=== PATIENT | male | born 1995 | race Caucasian/White ===

== ENCOUNTER 2016-12-13 17:40 | Inpatient (IN) ==
[2016-12-13] MEDS ORDERED: Ibuprofen 600 MG TABLET PO ONE (18:40)
--- NOTE | 2016-12-13 18:46 | Emergency Department Note ---
Disposition Clinical Impression: Acute psychosis Disposition: Admitted As Inpatient Condition: Fair Referrals: NO,PCP [Primary Care Provider] - Forms: Work/School Release, ED Satisfaction Letter Psych HPI - General Chief Complaint: ED General Medical Stated Complaint: med clearance, has pink slip Time Seen by Provider: 12/13/16 18:05 Source: patient Mode of arrival: private vehicle Limitations: no limitations Nursing Notes Reviewed: Yes Vital Signs Reviewed: Yes - History of Present Illness Pt complaint: medical clearance request If medical clearance, reason: psychiatric condition Onset (ago): day(s) Duration: constant, getting worse History of similar episodes: Yes Improves with: none Worsens with: none Context: other (unknown) Alleged intoxication: No Associated Psychiatric Symptoms: homicidal ideation, racing thoughts, auditory hallucinations Associated symptoms: Reports: other ("left knee cap and hands hurt from working so much." 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 Constitutional: Denies: fever, chills, weakness, weight change, night sweats Eyes: Denies: vision change ENT ED: Denies: throat pain, dysphagia Cardiovascular: Denies: chest pain, palpitations Respiratory: Denies: cough, dyspnea, wheezes Gastrointestinal: Denies: abdominal pain, nausea, vomiting Musculoskeletal: Denies: back pain, neck pain, joint swelling Integumentary: Denies: rash Neurological: Denies: headache, weakness, numbness, paresthesias Past Medical History - Past Medical History Attestation: Yes The following information was validated with the patient. Source: patient Medical history: Reports: no medical history Surgical history: Reports: no surgical history Psychiatric history: Reports: schizophrenia, previous psychiatric hospitalization - Social History Smoking Status: Current every day smoker Smokeless Tobacco Status: Yes Alcohol use: Reports: none Drug use: Reports: none Physical Exam - General Limitations: no limitations General appearance: alert, in no apparent distress - Head Head exam: atraumatic, normocephalic, normal inspection - Eye Eye exam: Present: normal appearance, PERRL. Absent: scleral icterus, conjunctival injection, periorbital swelling - ENT ENT exam: mucous membranes moist - Neck Neck exam: Present: normal inspection, full ROM, trachea midline - Chest Chest inspection: Present: normal inspection, symmetric chest wall rise - Respiratory Respiratory exam: Present: normal lung sounds bilaterally, respiratory distress - Cardiovascular Cardiovascular exam: Present: regular rate, normal rhythm, normal heart sounds - Extremities Exam Extremities exam: Present: normal inspection, full ROM, normal capillary refill. Absent: tenderness, pedal edema, joint swelling, calf tenderness - Expanded Upper Extremity Exam Shoulder exam: Present: normal inspection Arm exam: Present: normal inspection Elbow exam: Present: normal inspection Forearm/Wrist exam: Present: normal inspection Hand exam: Present: normal inspection, full ROM. Absent: tenderness, swelling Neuromotor exam: Normal: wrist extension, thumb opposition, thumb IP flexion, thumb adduction, fingers 2-5 abduction Neurosensory exam: Normal: radial nerve, ulnar nerve, median nerve, 2-point discrimination Hand tendon exam: Normal: flexor digitorum profundus (location), flexor digitorum superficialis (location), extensor tendon (location) - Expanded Lower Extremity Exam Hip/Pelvis exam: Present: normal inspection Upper leg exam: Present: normal inspection Knee exam: Present: normal inspection, full ROM. Absent: tenderness Lower leg exam: Present: normal inspection. Absent: tenderness, Homans' sign Ankle exam: Present: normal inspection, full ROM. Absent: tenderness, swelling Foot/toe exam: Present: normal inspection, full ROM. Absent: tenderness, swelling Neurovascular/Tendon exam: Present: normal capillary refill. Absent: pulse deficit, motor deficit, sensory deficit, extremity cold to touch, foot drop Gait: observed and normal - Back Exam Back exam: Present: normal inspection, full ROM. Absent: tenderness - Neurological Exam Neurological exam: Present: alert, oriented X3, CN II-XII intact, normal gait - Psychiatric Psychiatric exam: Present: depressed, flat affect - Skin Skin exam: Present: warm, dry, intact, normal color Course Vital Signs Temperature 97.9 F 12/13/16 18:15 Pulse Rate 79 12/13/16 18:15 Respiratory Rate 16 12/13/16 18:15 Blood Pressure 116/78 12/13/16 18:15 O2 Sat by Pulse Oximetry 99 12/13/16 18:15 Temperature 97.9 F 12/13/16 18:15 Pulse Rate 79 12/13/16 18:15 Respiratory Rate 16 12/13/16 18:15 Blood Pressure 116/78 12/13/16 18:15 O2 Sat by Pulse Oximetry 99 12/13/16 18:15 Oxygen Delivery Oxygen Delivery Room Air Psychiatric Medical Clearance - Medical Clearance Checklist Does the patient have a NEW psychiatric condition?: No Any abnormalities indicating possible medical illness?: No Any history of medical issues?: No Medical History: No Social History Section defined Any abnormal vital signs prior to transfer?: No Current Vitals: Last Vital Signs Temp 97.9 F 12/13/16 18:15 Pulse 79 12/13/16 18:15 Resp 16 12/13/16 18:15 BP 116/78 12/13/16 18:15 Pulse Ox 99 12/13/16 18:15 Is the patient intoxicated or cognitively impaired?: No Any abnormalities on the physical exam?: No Any abnormal labs?: No Does the patient require durable medical equiptment?: No Is the patient ambulatory?: Yes Is the patient a fall risk?: No Has the patient been medically cleared?: Yes Any acute medical condition require Tx prior to transfer?: Yes (pt c/o hand and patella pain from working a lot, given ibuprofen) Statement of Medical Clearance: I have evaluated the patient, reviewed diagnostic information, and certify that the patient's medical condition is sufficiently stable that transfer to the psychiatric unit does not pose a significant risk of deterioration.
[2016-12-13 18:53] LABS: Bilirubin,Urine Negative (Negative); Blood,Urine Negative (Negative); Clarity,Urine Clear (Clear); Color,Urine Yellow (Yellow); Glucose,Urine (UA) Normal (Normal); Ketones,Urine Negative (Negative); Leukocyte Esterase,Urine Negative (Negative); Nitrite,Urine Negative (Negative); PH,Urine 6.5 pH Units (5.0-8.0); Protein,Urine Negative (Neg-Trace); Specific Gravity,Urine < 1.005 (1.010-1.025); Urobilinogen,Urine Normal (Normal)
[2016-12-13 18:53] LABS: Basophils % 0.3 %; Eosinophils # 0.1 K/mcL (0.0-0.6); Eosinophils % 0.8 %; Hematocrit 48.5 % (37.5-50.1); Hemoglobin 16.7 g/dL (12.9-16.9); Immature Granulocytes % 0.2 % (0-4); Lymphocytes # 2.1 K/mcL (0.6-4.6); Lymphocytes % 23.4 %; Mean Corpuscular HGB Conc 34.4 g/dL (31.6-35.5); Mean Corpuscular Hemoglobin 29.7 pg (28.0-33.3); Mean Corpuscular Volume 86.3 fL (83.0-100.0); Mean Platelet Volume 9.5 fL (9.4-12.4); Monocytes # 0.6 K/mcL (0.0-1.3); Monocytes % 6.7 %; Neutrophils # 6.1 K/mcL (1.6-8.9); Platelet Count 275 K/mcL (140-400); Red Blood Count 5.62 M/mcL (4.19-5.50); Red Cell Distribution Width 12.3 % (11.5-14.5); Segmented Neutrophils % 68.6 %
[2016-12-13 18:59] LABS: Amphetamine Screen,Urine Negative ng/mL (Cutoff=1000); Barbiturate Screen,Urine Negative ng/mL (Cutoff=200); Benzodiazepines Screen,Urine Negative ng/mL (Cutoff=200); Cannabinoid Screen,Urine Negative ng/mL (Cutoff = 50); Cocaine Screen,Urine Negative ng/mL (Cutoff= 300); Opiate Screen,Urine Negative ng/mL (Cutoff=300); Phencyclidine Screen,Urine Negative ng/mL (Cutoff=25)
[2016-12-13 19:07] LABS: Alanine Aminotransferase 8 Units/L (0-55); Albumin 4.5 g/dL (3.5-5.0); Albumin/Globulin Ratio 1.3 (1.1-2.2); Alkaline Phosphatase 64 Units/L (38-126); Aspartate Amino Transferase 14 Units/L (5-34); BUN/Creatinine Ratio 6 (6-26); Bilirubin,Total 1.2 mg/dL (0.2-1.2); Calcium 9.7 mg/dL (8.6-10.8); Carbon Dioxide 28 mEq/L (19-29); Chloride 98 mEq/L (98-109); Globulin 3.4 g/dL (2.4-3.5); Glucose 101 mg/dL (70-99); Osmolality,Calculated 279 (280-300); Sodium 136 mEq/L (136-145); Total Protein 7.9 g/dL (6.0-8.3); eGFR For African Americans > 60 (> 60); eGFR For Non-African Americans > 60 (> 60)
[2016-12-13 19:09] LABS: Acetaminophen < 1.0 mcg/mL (10-30); Blood Urea Nitrogen 5 mg/dL (8-26); Ethanol < 10 mg/dL (0-10); Salicylate < 5.0 mg/dL (15-30)
[2016-12-13 19:28] LABS: Thyroid Stimulating Hormone 1.568 mcIU/mL (0.350-4.840)
[2016-12-13 19:29] LABS: Hepatitis B Core IgM Nonreactive (Nonreactive); Hepatitis B Surface Antigen Nonreactive (Nonreactive); Hepatitis C Virus Antibody Nonreactive (Nonreactive)
[2016-12-13 19:33] LABS: Hepatitis A Antibody IgM Nonreactive (Nonreactive)
[2016-12-13] MEDS ORDERED: *HR* LORazepam 2 MG/ML VIAL IM PRN (19:48)
[2016-12-13] MEDS ORDERED: Haloperidol Lactate 5 MG/ML VIAL IM PRN (19:48)
[2016-12-13] MEDS ORDERED: Mag Hydrox/Al Hydrox/Simeth 30 ML UDC PO PRN (19:48)
[2016-12-13] MEDS ORDERED: MOM Conc 10 ML UD.LIQ PO PRN (19:48)
[2016-12-13] MEDS: Nicotine 2 MG GUM BC PRN (20:40)
--- NOTE | 2016-12-14 11:21 | Psychiatry History & Physical ---
Date of Encounter: 12/14/16 Time of Encounter: 10:30 History of Present Illness Patient Stated Chief Complaint: visual hallucinations and auditory hallucinations Medicare Admission Attestation: For traditional Medicare patients the provided hospital inpatient services are reasonable and necessary and in the case of services not specified as inpatient -only under 42 CFR 419.22 (n), that they are appropriately provided as inpatient services in accordance 42 CFR 412.3. For Critical Access Hospital the patient may reasonably be expected to be discharged or transferred to a hospital within 96 hours after admission to the Critical [facility] Hospital. Admitted From: Emergency Dept History of Present Illness: Mr. Aguila is a 21 year old male admitted from the emergency department reporting visual hallucinations and auditory hallucinations. Patient has a previous admission with similar presentation in April 2016 and was prescribed medication including Seroquel and Celexa he did not follow-up as advised. He is very guarded and suspicious and paranoid, was not able to answer most questions he was internally stimulated and distractible but she denied any suicidal or homicidal ideation. And he denied any use of alcohol or drugs. Past Med Surg Social Fam HX - Past Medical History Medical history: no medical history - Past Psychiatric History Psychiatric history: Reports: schizophrenia, previous psychiatric hospitalization - Past Surgical History Surgical History: no surgical history - Social History Smoking Status: Current every day smoker Smokeless Tobacco Status: Yes Alcohol use: none Drug use: none - Family History Mother Hx Family GI Disorders: Yes (ulcers) Hx Family Medical Disorders: No Medications & Allergies No Known Home Drugs 12/13/16 [History] Allergies Amoxicillin Allergy (Verified 05/03/16 22:33) Hives Review of Systems Psychiatric: Reports: auditory hallucinations, visual hallucinations Mental Status Exam Patient orientation: Yes Person, Yes Time, Yes Place Level of alertness: Alert Patient appearance: Appropriate, Well Groomed Behavior: calm, cooperative, restless, guarded, suspicious, distractible Psychomotor activity: Increased Eye contact: Avoids Eye Contact Mood description: Anxious Affect description: congruent with mood, constricted, anxious Speech pattern: Slowed, Delayed, Limited, Impoverished Speech volume: Whispering Thought process: Tangential, Thought Blocking Thought content: No Suicidal ideation, No Homicidal ideation, No Overt delusions , Yes Paranoid delusion Perceptual disturbances: Yes Reacting to internal stimuli, Yes Auditory hallucinations, Yes Visual hallucinations Attention span: Unable to Focus Memory description: Grossly Intact, Immediate Impaired, Recent Impaired, Remote Impaired Patient reliability: Not Reliable Historian Intelligence estimate: Average Judgment: Limited Insight: Partial Results - Vital Signs Vital signs: Temp Pulse Resp BP Pulse Ox 98 F 73 16 114/68 99 12/14/16 09:00 12/14/16 09:00 12/14/16 09:00 12/14/16 09:00 12/13/16 18:15 - Labs Labs: Laboratory Last Values WBC 8.9 K/mcL (4.3-11.1) 12/13/16 18:43 RBC 5.62 M/mcL (4.19-5.50) H 12/13/16 18:43 Hgb 16.7 g/dL (12.9-16.9) 12/13/16 18:43 Hct 48.5 % (37.5-50.1) 12/13/16 18:43 MCV 86.3 fL (83.0-100.0) 12/13/16 18:43 MCH 29.7 pg (28.0-33.3) 12/13/16 18:43 MCHC 34.4 g/dL (31.6-35.5) 12/13/16 18:43 RDW 12.3 % (11.5-14.5) 12/13/16 18:43 Plt Count 275 K/mcL (140-400) 12/13/16 18:43 MPV 9.5 fL (9.4-12.4) 12/13/16 18:43 Immature Gran % 0.2 % (0-4) 12/13/16 18:43 Seg Neutrophils % 68.6 % 12/13/16 18:43 Lymphocytes % 23.4 % 12/13/16 18:43 Monocytes % 6.7 % 12/13/16 18:43 Eosinophils % 0.8 % 12/13/16 18:43 Basophils % 0.3 % 12/13/16 18:43 Neutrophils # 6.1 K/mcL (1.6-8.9) 12/13/16 18:43 Lymphocytes # 2.1 K/mcL (0.6-4.6) 12/13/16 18:43 Monocytes # 0.6 K/mcL (0.0-1.3) 12/13/16 18:43 Eosinophils # 0.1 K/mcL (0.0-0.6) 12/13/16 18:43 Basophils # 0.0 K/mcL (0.0-0.2) 12/13/16 18:43 Sodium 136 mEq/L (136-145) 12/13/16 18:43 Potassium 4.0 mEq/L (3.5-4.5) 12/13/16 18:43 Chloride 98 mEq/L (98-109) 12/13/16 18:43 Carbon Dioxide 28 mEq/L (19-29) 12/13/16 18:43 BUN 5 mg/dL (8-26) L 12/13/16 18:43 Creatinine 0.84 mg/dL (0.72-1.25) 12/13/16 18:43 Est GFR ( Amer) > 60 (> 60) 12/13/16 18:43 Est GFR (Non-Af Amer) > 60 (> 60) 12/13/16 18:43 BUN/Creatinine Ratio 6 (6-26) 12/13/16 18:43 Glucose 101 mg/dL (70-99) H 12/13/16 18:43 Calculated Osmolality 279 (280-300) L 12/13/16 18:43 Calcium 9.7 mg/dL (8.6-10.8) 12/13/16 18:43 Total Bilirubin 1.2 mg/dL (0.2-1.2) 12/13/16 18:43 AST 14 Units/L (5-34) 12/13/16 18:43 ALT 8 Units/L (0-55) 12/13/16 18:43 Alkaline Phosphatase 64 Units/L (38-126) 12/13/16 18:43 Serum Total Protein 7.9 g/dL (6.0-8.3) 12/13/16 18:43 Albumin 4.5 g/dL (3.5-5.0) 12/13/16 18:43 Globulin 3.4 g/dL (2.4-3.5) 12/13/16 18:43 Albumin/Globulin Ratio 1.3 (1.1-2.2) 12/13/16 18:43 TSH 1.568 mcIU/mL (0.350-4.840) 12/13/16 18:43 Urine Color Yellow (Yellow) 12/13/16 18:41 Urine Clarity Clear (Clear) 12/13/16 18:41 Urine pH 6.5 pH Units (5.0-8.0) 12/13/16 18:41 Ur Specific [place] < 1.005 (1.010-1.025) L 12/13/16 18:41 Urine Protein Negative mg/dL (Neg-Trace) 12/13/16 18:41 Urine Glucose (UA) Normal mg/dL (Normal) 12/13/16 18:41 Urine Ketones Negative mg/dL (Negative) 12/13/16 18:41 Urine Blood Negative (Negative) 12/13/16 18:41 Urine Nitrite Negative (Negative) 12/13/16 18:41 Urine Bilirubin Negative (Negative) 12/13/16 18:41 Urine Urobilinogen Normal mg/dL (Normal) 12/13/16 18:41 Ur Leukocyte Esterase Negative (Negative) 12/13/16 18:41 Ur Culture Indicated? NO (NO) 12/13/16 18:41 Salicylates < 5.0 mg/dL (15-30) L 12/13/16 18:43 Urine Opiates Screen Negative ng/mL (Zhzrez=059) 12/13/16 18:41 Acetaminophen < 1.0 mcg/mL (10-30) L 12/13/16 18:43 Ur Barbiturates Screen Negative ng/mL (Fkzeax=006) 12/13/16 18:41 Ur Phencyclidine Scrn Negative ng/mL (Cutoff=25) 12/13/16 18:41 Ur Amphetamines Screen Negative ng/mL (Omizpu=5301) 12/13/16 18:41 U Benzodiazepines Scrn Negative ng/mL (Lelxhi=573) 12/13/16 18:41 Urine Cocaine Screen Negative ng/mL (Cutoff= 300) 12/13/16 18:41 U Marijuana (THC) Screen Negative ng/mL (Cutoff = 50) 12/13/16 18:41 Ethyl Alcohol < 10 mg/dL (0-10) 12/13/16 18:43 Hepatitis A IgM Ab Nonreactive (Nonreactive) 12/13/16 18:43 Hep Bs Antigen Nonreactive (Nonreactive) 12/13/16 18:43 Hep B Core IgM Ab Nonreactive (Nonreactive) 12/13/16 18:43 Hepatitis C Ab Screen Nonreactive (Nonreactive) 12/13/16 18:43 Assessment and Plan (1) Acute psychosis Current visit: Yes Status: Acute Plan: Admit inpatient for safety and stabilization, Close observation, Suicide Precautions per unit protocol, Encourage participation in unit milieu, Group Therapy, Monitor sleep, Monitor appetite Additional Plan: We will start patient on Celexa 20 mg and Seroquel 50 mg at bedtime benefits and side effects were discussed with the patient is agreeable to start medication and will monitor Risks, benefits, side effects, alternatives discussed w/pt: Yes Patient agreeable to treatment: Yes
[2016-12-14] MEDS: Acetaminophen 325 MG TABLET PO PRN (11:25)
[2016-12-14] MEDS: Nicotine 2 MG GUM BC PRN (13:31)
[2016-12-14] MEDS: ARIPiprazole 5 MG TABLET PO SCH (20:38)
[2016-12-14] MEDS: traZODone 50 MG TABLET PO PRN (20:38)
[2016-12-15] MEDS: *HR* LORazepam 1 MG TABLET PO PRN ×2 (02:40→19:19)
--- NOTE | 2016-12-15 13:47 | Psychiatry Progress Note ---
Date of Encounter: 12/15/16 Time of Encounter: 13:44 Subjective Interval history: Patient is seen for follow-up. Staff report he is cooperative, compliant with medication, participated in groups. He is not agitated and denies any auditory hallucination. He reports improved sleep. He is more interactive and making eye contact. Denies any suicidal thoughts. Review of Systems Psychiatric: Reports: auditory hallucinations, visual hallucinations Objective: Exam Patient orientation: Yes Person, Yes Time, Yes Place Level of alertness: Alert Patient appearance: Appropriate, Well Groomed Behavior: calm, cooperative, anxious, guarded Psychomotor activity: Normal Eye contact: Minimal Contact Mood description: Euthymic/stable, Anxious Affect description: congruent with mood, euthymic, anxious Speech pattern: Normal rate, Normal rhythm, Normal tone Speech volume: Normal, Whispering Thought process: Linear, Goal Oriented Thought content: No Suicidal ideation, No Homicidal ideation, No Overt delusions Perceptual disturbances: Yes Reacting to internal stimuli, No Auditory hallucinations, No Visual hallucinations Judgment: Fair Insight: Partial Results - Vital Signs Vital Signs: Temp Pulse Resp BP Pulse Ox 98.3 F 80 18 106/71 99 12/15/16 09:00 12/15/16 09:00 12/15/16 09:00 12/15/16 09:00 12/13/16 18:15 Assessment and Plan (1) Acute psychosis Current visit: Yes Status: Acute Plan: Continue hospitalization, Close observation, Suicide Precautions per unit protocol, Encourage participation in unit milieu, Group Therapy, Monitor sleep, Monitor appetite Risks, benefits, side effects, alternatives discussed w/pt: Yes Patient agreeable to treatment: Yes Consult Discharge Plan - Plan Referrals: NO,PCP [Primary Care Provider] -
[2016-12-15] MEDS: Nicotine 2 MG GUM BC PRN (19:16)
[2016-12-15] MEDS: Acetaminophen 325 MG TABLET PO PRN (19:16)
[2016-12-15] MEDS: ARIPiprazole 5 MG TABLET PO SCH (20:57)
[2016-12-15] MEDS: hydrOXYzine pamoate 25 MG CAPSULE PO PRN (20:57)
[2016-12-15] MEDS: traZODone 50 MG TABLET PO PRN (20:57)
[2016-12-16] MEDS: *HR* LORazepam 1 MG TABLET PO PRN ×2 (08:12→21:50)
[2016-12-16] MEDS: Nicotine 21 MG PATCH.TD24 TD SCH (09:42)
--- NOTE | 2016-12-16 14:07 | Psychiatry Progress Note ---
Date of Encounter: 12/16/16 Time of Encounter: 14:03 Subjective Interval history: Patient seen for follow-up. He denies visual hallucinations, auditory hallucinations are less frequent and not as loud. He has been sleeping longer hours and denies any suicidal thoughts. Compliant with medication and attend some groups. Signed in voluntarily. Review of Systems Psychiatric: Reports: auditory hallucinations, visual hallucinations Objective: Exam Patient orientation: Yes Person, Yes Time, Yes Place Level of alertness: Alert, Sedated Patient appearance: Appropriate, Unkempt Behavior: calm, cooperative, distractible Psychomotor activity: Slowed Eye contact: Fleeting Contact Mood description: Euthymic/stable Affect description: congruent with mood, blunted Speech pattern: Normal rate, Normal rhythm, Normal tone, Limited, Impoverished Speech volume: Normal, Whispering Thought process: Linear, Goal Oriented Thought content: No Suicidal ideation, No Homicidal ideation, No Overt delusions Perceptual disturbances: Yes Auditory hallucinations, No Visual hallucinations Judgment: Fair Insight: Partial Results - Vital Signs Vital Signs: Temp Pulse Resp BP Pulse Ox 98.4 F 74 18 114/66 99 12/16/16 09:00 12/16/16 09:00 12/16/16 09:00 12/16/16 09:00 12/13/16 18:15 Assessment and Plan (1) Acute psychosis Current visit: Yes Status: Acute Plan: Continue hospitalization, Close observation, Suicide Precautions per unit protocol, Encourage participation in unit milieu, Group Therapy, Monitor sleep, Monitor appetite Additional Plan: Will increase Abilify to 10 mg at bedtime. Risks, benefits, side effects, alternatives discussed w/pt: Yes Patient agreeable to treatment: Yes Consult Discharge Plan - Plan Referrals: [facility] [Outside] - 12/30/16 11:00 am (The above appointment is with Dr. Brady, psychiatrist. Please arrive 30 minutes early for this appointment to complete paperwork. This is the first available appointment. You may contact the office regularly to check for cancellations that may allow you to be seen sooner. Office staff will contact you directly to schedule your intake appointment for counseling/case management services. )
[2016-12-16] MEDS: Acetaminophen 325 MG TABLET PO PRN ×2 (15:46→21:49)
[2016-12-16] MEDS: traZODone 50 MG TABLET PO PRN (21:49)
[2016-12-16] MEDS: ARIPiprazole 5 MG TABLET PO SCH (21:50)
[2016-12-17] MEDS: Nicotine 21 MG PATCH.TD24 TD SCH (08:40)
--- NOTE | 2016-12-17 13:23 | Psychiatry Progress Note ---
Date of Encounter: 12/17/16 Time of Encounter: 13:00 Subjective Interval history: Patient is seen for follow-up. Staff report he has been given when necessary medication twice a day for the last 2 days. He is internally stimulated, paranoid and report auditory and visual hallucinations. He seclusive to his room at all times. Avoids interaction, avoids eye contact. 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 Review of Systems Psychiatric: Reports: auditory hallucinations, visual hallucinations Objective: Exam Patient orientation: Yes Person, Yes Time, Yes Place Level of alertness: Alert Patient appearance: Appropriate, Unkempt, Thin Behavior: cooperative, anxious, suspicious Psychomotor activity: Slowed Eye contact: Avoids Eye Contact Mood description: Anxious Affect description: congruent with mood, constricted Speech pattern: Normal rate, Normal rhythm, Normal tone, Limited, Impoverished Speech volume: Normal Thought process: Tangential, Thought Blocking Thought content: No Suicidal ideation, No Homicidal ideation, No Overt delusions , Yes Paranoid delusion, Yes Poverty of Content Perceptual disturbances: Yes Auditory hallucinations, Yes Visual hallucinations Judgment: Fair Insight: Partial Results - Vital Signs Vital Signs: Temp Pulse Resp BP Pulse Ox 98.4 F 101 20 103/68 99 12/17/16 09:00 12/17/16 09:00 12/17/16 09:00 12/17/16 09:00 12/13/16 18:15 Assessment and Plan (1) Acute psychosis Current visit: Yes Status: Acute Plan: Continue hospitalization, Close observation, Suicide Precautions per unit protocol, Encourage participation in unit milieu, Group Therapy, Monitor sleep, Monitor appetite Additional Plan: Will add Haldol 5 mg by mouth twice a day scheduled Risks, benefits, side effects, alternatives discussed w/pt: Yes Patient agreeable to treatment: Yes Consult Discharge Plan - Plan Referrals: [facility] [Outside] - 12/30/16 11:00 am (The above appointment is with Dr. Brady, psychiatrist. Please arrive 30 minutes early for this appointment to complete paperwork. This is the first available appointment. You may contact the office regularly to check for cancellations that may allow you to be seen sooner. Office staff will contact you directly to schedule your intake appointment for counseling/case management services. )
[2016-12-17] MEDS: *HR* LORazepam 1 MG TABLET PO PRN ×2 (13:27→19:58)
[2016-12-17] MEDS: hydrOXYzine pamoate 25 MG CAPSULE PO PRN (19:58)
[2016-12-17] MEDS: ARIPiprazole 5 MG TABLET PO SCH (19:58)
[2016-12-17] MEDS: Acetaminophen 325 MG TABLET PO PRN (19:58)
[2016-12-17] MEDS: traZODone 50 MG TABLET PO PRN (19:58)
[2016-12-18] MEDS: Nicotine 21 MG PATCH.TD24 TD SCH (08:15)
--- NOTE | 2016-12-18 13:24 | Psychiatry Progress Note ---
Date of Encounter: 12/18/16 Time of Encounter: 13:00 Subjective Interval history: Omi is seen today for follow-up. He is admitted to the hospital with psychosis and remains very withdrawn to his room. Patient reports that he has been hearing voices. He is actively thought blocking during this interview. Patient remains mainly hidden under his blankets and avoids eye contact. He does report some nausea and this has been witnessed by staff. Patient does also report that he is extremely nervous and he does not want to leave his room but will not say why. Review of Systems Gastrointestinal: Reports: nausea, vomiting Psychiatric: Reports: anxiety, abnormal sleep pattern, auditory hallucinations, visual hallucinations, panic attacks Objective: Exam Patient orientation: Yes Person, Yes Place Level of alertness: Alert Patient appearance: Unkempt Behavior: guarded, fearful Psychomotor activity: Slowed Eye contact: Diverts Contact Mood description: Anxious Affect description: blunted Speech pattern: Slowed Speech volume: Soft/Quiet Thought process: Slowed Thinking Thought content: No Suicidal ideation, No Homicidal ideation, Yes Thought insertion Perceptual disturbances: Yes Reacting to internal stimuli, Yes Auditory hallucinations Judgment: Poor Insight: None Results - Vital Signs Vital Signs: Temp Pulse Resp BP Pulse Ox 98.2 F 88 16 92/62 99 12/18/16 09:00 12/18/16 09:00 12/18/16 09:00 12/18/16 09:00 12/13/16 18:15 Assessment and Plan (1) Acute psychosis Current visit: Yes Status: Acute Plan: Continue hospitalization, Close observation, Suicide Precautions per unit protocol, Encourage participation in unit milieu, Group Therapy, Monitor sleep, Monitor appetite Additional Plan: Patient was recently added on Haldol and has required as needed medication for his psychotic symptoms. Continue to monitor closely to make sure that nausea is not related to medication side effects. Consider increasing Haldol or transitioning to another medication depending on how patient does over the next 24 hours. Risks, benefits, side effects, alternatives discussed w/pt: Yes Patient agreeable to treatment: Yes Consult Discharge Plan - Plan Referrals: [facility] [Outside] - 12/30/16 11:00 am (The above appointment is with Dr. Brady, psychiatrist. Please arrive 30 minutes early for this appointment to complete paperwork. This is the first available appointment. You may contact the office regularly to check for cancellations that may allow you to be seen sooner. Office staff will contact you directly to schedule your intake appointment for counseling/case management services. )
[2016-12-18] MEDS: *HR* LORazepam 1 MG TABLET PO PRN (16:34)
[2016-12-18] MEDS ORDERED: Ziprasidone 20 MG CAPSULE PO ONE (18:30)
[2016-12-18] MEDS: Acetaminophen 325 MG TABLET PO PRN (20:27)
[2016-12-18] MEDS: ARIPiprazole 5 MG TABLET PO SCH (20:27)
[2016-12-18] MEDS: hydrOXYzine pamoate 25 MG CAPSULE PO PRN (20:27)
[2016-12-19] MEDS: hydrOXYzine pamoate 25 MG CAPSULE PO PRN ×2 (07:37→20:08)
[2016-12-19] MEDS: Nicotine 21 MG PATCH.TD24 TD SCH (08:19)
[2016-12-19] MEDS ORDERED: Ziprasidone 80 MG CAPSULE PO SCH (10:23)
[2016-12-19] MEDS: Ziprasidone 20 MG CAPSULE PO SCH ×2 (10:39→20:09)
--- NOTE | 2016-12-19 13:17 | Psychiatry Progress Note ---
Date of Encounter: 12/19/16 Time of Encounter: 11:40 Subjective Interval history: Omi is seen today for follow-up. He was having some EPS symptoms from the Haldol and this was discontinued. Patient was given IM Benadryl and symptoms subsided. Last night he was given Geodon 20 mg 1 dosage and had some improvement in his hallucinations. We will discontinue Abilify and scheduled Geodon for patient's symptoms. Patient denies any issues with muscle cramping today but does report continued hallucinations at the time of the interview. He has been seen responding to internal stimuli and he does continue to thought block. The hallucinations are distressing to Omi. He reports he did not sleep last night. Staff confirms this. Review of Systems Psychiatric: Reports: anxiety, abnormal sleep pattern, auditory hallucinations, visual hallucinations, irritability, panic attacks Objective: Exam Patient orientation: Yes Person Level of alertness: Alert Patient appearance: Appropriate Behavior: nervous, guarded Psychomotor activity: Slowed Eye contact: Diverts Contact Mood description: Anxious Affect description: blunted Speech pattern: Slowed Speech volume: Soft/Quiet Thought process: Thought Blocking, [place] Perceptual disturbances: Yes Reacting to internal stimuli, Yes Auditory hallucinations, Yes Visual hallucinations Judgment: Limited Insight: Minimal Results - Vital Signs Vital Signs: Temp Pulse Resp BP Pulse Ox 98.2 F 46 12 109/56 99 12/19/16 08:48 12/19/16 08:48 12/19/16 08:48 12/19/16 08:48 12/13/16 18:15 Assessment and Plan (1) Acute psychosis Current visit: Yes Status: Acute Plan: Continue hospitalization, Close observation, Suicide Precautions per unit protocol, Encourage participation in unit milieu, Group Therapy, Monitor sleep, Monitor appetite Additional Plan: Discontinue Abilify and start Geodon 20 mg twice a day with Cogentin. We will also start when necessary Geodon instead of Haldol for agitation and increased hallucinations. We will monitor patient for side effects before increasing the dosage. Risks, benefits, side effects, alternatives discussed w/pt: Yes Patient agreeable to treatment: Yes Consult Discharge Plan - Plan Referrals: [facility] [Outside] - 12/30/16 11:00 am (The above appointment is with Dr. Brady, psychiatrist. Please arrive 30 minutes early for this appointment to complete paperwork. This is the first available appointment. You may contact the office regularly to check for cancellations that may allow you to be seen sooner. Office staff will contact you directly to schedule your intake appointment for counseling/case management services. )
[2016-12-19] MEDS: Ziprasidone 20 MG CAPSULE PO PRN (15:43)
[2016-12-19] MEDS: Acetaminophen 325 MG TABLET PO PRN ×2 (15:47→20:08)
[2016-12-19] MEDS: traZODone 50 MG TABLET PO PRN (20:08)
[2016-12-20] MEDS: Nicotine 21 MG PATCH.TD24 TD SCH (08:19)
[2016-12-20] MEDS: Acetaminophen 325 MG TABLET PO PRN ×2 (08:19→18:05)
[2016-12-20] MEDS: Ziprasidone 20 MG CAPSULE PO SCH ×2 (08:20→20:25)
--- NOTE | 2016-12-20 14:40 | Psychiatry Progress Note ---
Date of Encounter: 12/20/16 Time of Encounter: 14:30 Subjective Interval history: Patient is seen for follow-up. His medication was changed on the weekend due to EPS. He was started on Geodon 20 mg twice a day and Abilify was discontinued. Today patient denies any stiffness or muscle spasm is more alert and interactive. Continue to report auditory hallucination but he is unable to make up the words. Denies any suicidal ideation. Review of Systems Psychiatric: Reports: anxiety, abnormal sleep pattern, auditory hallucinations, visual hallucinations, irritability, panic attacks Objective: Exam Patient orientation: Yes Person, Yes Time, Yes Place Level of alertness: Alert Patient appearance: Appropriate, Well Groomed Behavior: calm, cooperative Psychomotor activity: Normal Eye contact: Maintains Eye Contact Mood description: Euthymic/stable, Anxious Affect description: congruent with mood, constricted Speech pattern: Normal rate, Normal rhythm, Normal tone Speech volume: Normal Thought process: Linear, Goal Oriented Thought content: No Suicidal ideation, No Homicidal ideation, No Overt delusions Perceptual disturbances: Yes Auditory hallucinations, No Visual hallucinations Judgment: Fair Insight: Partial Results - Vital Signs Vital Signs: Temp Pulse Resp BP Pulse Ox 97.8 F 91 18 99/65 99 12/20/16 09:00 12/20/16 09:00 12/20/16 09:00 12/20/16 09:00 12/13/16 18:15 Assessment and Plan (1) Acute psychosis Current visit: Yes Status: Acute Plan: Continue hospitalization, Close observation, Suicide Precautions per unit protocol, Encourage participation in unit milieu, Group Therapy, Monitor sleep, Monitor appetite Risks, benefits, side effects, alternatives discussed w/pt: Yes Patient agreeable to treatment: Yes Consult Discharge Plan - Plan Referrals: [facility] [Outside] - 12/30/16 11:00 am (The above appointment is with Dr. Brady, psychiatrist. Please arrive 30 minutes early for this appointment to complete paperwork. This is the first available appointment. You may contact the office regularly to check for cancellations that may allow you to be seen sooner. Office staff will contact you directly to schedule your intake appointment for counseling/case management services. )
[2016-12-20] MEDS: *HR* LORazepam 1 MG TABLET PO PRN (18:05)
[2016-12-20] MEDS: Ziprasidone 20 MG CAPSULE PO PRN (18:05)
[2016-12-20] MEDS: hydrOXYzine pamoate 25 MG CAPSULE PO PRN (20:26)
[2016-12-20] MEDS: traZODone 50 MG TABLET PO PRN (20:26)
[2016-12-21] MEDS: Nicotine 21 MG PATCH.TD24 TD SCH (08:02)
[2016-12-21] MEDS: Ziprasidone 20 MG CAPSULE PO SCH ×2 (08:03→20:09)
--- NOTE | 2016-12-21 12:07 | Psychiatry Progress Note ---
Date of Encounter: 12/21/16 Time of Encounter: 11:30 Subjective Interval history: Patient is seen for follow-up. He reports less auditory and visual hallucinations, he is more alert and interactive. He is tolerating medication and denies any side effects. He denies suicidal ideation. His discharge plans are ongoing. Review of Systems Psychiatric: Reports: anxiety, abnormal sleep pattern, auditory hallucinations, visual hallucinations, irritability, panic attacks Objective: Exam Patient orientation: Yes Person, Yes Time, Yes Place Level of alertness: Alert Patient appearance: Appropriate, Well Groomed Behavior: calm, cooperative Psychomotor activity: Normal Eye contact: Maintains Eye Contact Mood description: Euthymic/stable Affect description: congruent with mood, full range Speech pattern: Normal rate, Normal rhythm, Normal tone Speech volume: Normal Thought process: Linear, Goal Oriented Thought content: No Suicidal ideation, No Homicidal ideation, No Overt delusions Perceptual disturbances: Yes Auditory hallucinations, Yes Visual hallucinations Judgment: Fair Insight: Partial Results - Vital Signs Vital Signs: Temp Pulse Resp BP Pulse Ox 97.6 F 90 16 108/63 99 12/21/16 09:00 12/21/16 09:00 12/21/16 09:00 12/21/16 09:00 12/13/16 18:15 Assessment and Plan (1) Acute psychosis Current visit: Yes Status: Acute Plan: Continue hospitalization, Close observation, Suicide Precautions per unit protocol, Encourage participation in unit milieu, Group Therapy, Monitor sleep, Monitor appetite Risks, benefits, side effects, alternatives discussed w/pt: Yes Patient agreeable to treatment: Yes Consult Discharge Plan - Plan Referrals: [facility] [Outside] - 12/30/16 11:00 am (The above appointment is with Dr. Brady, psychiatrist. Please arrive 30 minutes early for this appointment to complete paperwork. This is the first available appointment. You may contact the office regularly to check for cancellations that may allow you to be seen sooner. Office staff will contact you directly to schedule your intake appointment for counseling/case management services. )
[2016-12-21] MEDS: Acetaminophen 325 MG TABLET PO PRN (20:09)
[2016-12-21] MEDS: traZODone 50 MG TABLET PO PRN (20:09)
[2016-12-21] MEDS: hydrOXYzine pamoate 25 MG CAPSULE PO PRN (20:10)
[2016-12-21] MEDS ORDERED: traZODone 50 MG TABLET PO ONE (22:02)
[2016-12-22] MEDS: Nicotine 21 MG PATCH.TD24 TD SCH (08:17)
[2016-12-22] MEDS: Ziprasidone 20 MG CAPSULE PO SCH (08:18)
[2016-12-22 08:39] VITALS: BP 107/61
--- NOTE | 2016-12-22 13:59 | Discharge Summary ---
Date of Encounter: 12/22/16 Time of Encounter: 12:20 Diagnosis - Discharge Diagnosis (1) Acute psychosis Status: Acute Medications - Discharge Medications Prescriptions: Citalopram [CeleXA] 30 mg PO DAILY #30 tablet Ziprasidone [Geodon] 20 mg PO BID #60 capsule Citalopram [CeleXA] 30 mg PO DAILY #30 tablet 12/22/16 [Rx] Ziprasidone [Geodon] 20 mg PO BID #60 capsule 12/22/16 [Rx] Allergies Amoxicillin Allergy (Verified 05/03/16 22:33) Hives Provider Date of admission: 12/13/16 19:44 Primary care physician: PCP NO Discharging clinician: Cliff Rendon Assessment and Plan - Patient/Caregiver Discharge Instructions Activity: resume usual activities as tolerated Diet: regular diet Additional Instructions: Patient will need medication management and monitoring of his EKG at intervals. EKG was done in the hospital as baseline and was normal EKG. Patient on medication including citalopram and Geodon that may cause EKG changes. This will be ordered by the psychiatrist or the PCP. - Follow up Plan Follow up with: [facility] [Outside] - 12/30/16 11:00 am (The above appointment is with Dr. Brady, psychiatrist. Please arrive 30 minutes early for this appointment to complete paperwork. This is the first available appointment. You may contact the office regularly to check for cancellations that may allow you to be seen sooner. Office staff will contact you directly to schedule your intake appointment for counseling/case management services. ) Functional capacity at discharge: independent ambulation Overall status at discharge: Stable Disposition: Home, Self-Care Hospital Course Hospital course: Mr. Aguila is a 21 year old male admitted for acute psychosis with delusions and hallucinations and paranoia. For details of admission please see H&P On the unit patient was displaying symptoms of paranoia delusion he was self isolating in his room, he did not participate in activities. She reported auditory and visual hallucinations and his sleep and appetite were fair to poor. Patient was started on Abilify in addition to citalopram, he showed improvement in his paranoia and delusions but then he experience some extrapyramidal symptoms and Abilify was discontinued and he was started on Geodon. Patient reported improved sleep and appetite his ADLs improved he participated in groups and become more active and he was excited about discharge. Denied auditory or visual hallucinations and denies suicidal ideation. EKG was performed to establish baseline that need to be monitored later as part of his medication management. His discharge plans were completed by socially responsible investment adviser. On discharge she was medically stable and not depressed or suicidal nonpsychotic and future oriented. - Time Spent with Patient Total time spent providing and/or coordinating discharge services: Greater than 30 minutes Quality - Multiple Antipsychotics Patient discharged on 2 or more antipsychotic medications: No Procedures - Procedures Procedures: Medication Management, Crisis Stabilization, Supportive Therapy, Group Therapy, Psychoeducational Therapy Mental Status Exam - Mental Status Exam Patient orientation: Yes Person, Yes Time, Yes Place Level of alertness: Alert Patient appearance: Appropriate, Well Groomed Behavior: calm, cooperative Psychomotor activity: Normal Eye contact: Maintains Eye Contact Mood description: Euthymic/stable Affect description: congruent with mood, full range Speech pattern: Normal rate, Normal rhythm, Normal tone Speech Volume: Normal Thought process: Linear, Goal Oriented Thought Content: No Suicidal ideation, No Homicidal ideation, No Overt delusions Perceptual Disturbances: No Auditory hallucinations, No Visual hallucinations Judgment: Limited Insight: Partial
--- NOTE | 2016-12-23 14:43 | Electrocardiograph Report ---
[address] [place] [address] Test Date: 2016-12-22 Pat Name: Omi Aguila Department: 101 Room: 1A Gender: M Supervisor Taping: : 1995 Requested By: Cliff Rendon Order Number: [id number] Reading MD: Keanu Arrieta MD Measurements Intervals [place] Rate: 62 P: 57 UT: 143 QRS: 71 QRSD: 80 T: 72 QT: 395 QTc: 400 Interpretive Statements SINUS RHYTHM WITH SINUS ARRHYTHMIA Electronically Signed On 12-23-2016 14:41:41 EDT by Keanu Arrieta MD
== END 2016-12-22 17:00 | disposition home or self-care (01) | DRG 751 ==
LOC: EMEROO 17:40 → 1ANU 19:44
PROVIDERS: ADMIT Psychiatry & Neurology Psychiatry; ATTEND Psychiatry & Neurology Psychiatry

== ENCOUNTER 2017-01-15 22:50 | Inpatient (IN) ==
[2017-01-15 23:44] LABS: Bilirubin,Urine Negative (Negative); Blood,Urine Negative (Negative); Clarity,Urine Clear (Clear); Color,Urine Yellow (Yellow); Glucose,Urine (UA) Normal (Normal); Ketones,Urine Negative (Negative); Leukocyte Esterase,Urine Negative (Negative); Nitrite,Urine Negative (Negative); PH,Urine 6.5 pH Units (5.0-8.0); Protein,Urine Negative (Neg-Trace); Specific Gravity,Urine 1.005 (1.010-1.025); Urobilinogen,Urine Normal (Normal)
[2017-01-15 23:50] LABS: Amphetamine Screen,Urine Negative ng/mL (Cutoff=1000); Barbiturate Screen,Urine Negative ng/mL (Cutoff=200); Benzodiazepines Screen,Urine Negative ng/mL (Cutoff=200); Cannabinoid Screen,Urine Negative ng/mL (Cutoff = 50); Cocaine Screen,Urine Negative ng/mL (Cutoff= 300); Opiate Screen,Urine Negative ng/mL (Cutoff=300); Phencyclidine Screen,Urine Negative ng/mL (Cutoff=25)
[2017-01-16 00:05] LABS: Basophils # 0.1 K/mcL (0.0-0.2); Basophils % 0.4 %; Eosinophils # 0.1 K/mcL (0.0-0.6); Eosinophils % 0.7 %; Hematocrit 44.8 % (37.5-50.1); Hemoglobin 15.3 g/dL (12.9-16.9); Immature Granulocytes % 0.5 % (0-4); Immature Platelets 2.6 % (1.1-6.1); Lymphocytes # 1.7 K/mcL (0.6-4.6); Lymphocytes % 12.9 %; Mean Corpuscular HGB Conc 34.2 g/dL (31.6-35.5); Mean Corpuscular Hemoglobin 30.1 pg (28.0-33.3); Mean Platelet Volume 9.3 fL (9.4-12.4); Monocytes % 7.8 %; Neutrophils # 10.4 K/mcL (1.6-8.9); Platelet Count 224 K/mcL (140-400); Red Blood Count 5.09 M/mcL (4.19-5.50); Red Cell Distribution Width 13.2 % (11.5-14.5); Segmented Neutrophils % 77.7 %
[2017-01-16 00:16] LABS: BUN/Creatinine Ratio 8 (6-26); Blood Urea Nitrogen 7 mg/dL (8-26); Calcium 9.3 mg/dL (8.6-10.8); Carbon Dioxide 27 mEq/L (19-29); Chloride 99 mEq/L (98-109); Glucose 111 mg/dL (70-99); Osmolality,Calculated 279 (280-300); Potassium 3.2 mEq/L (3.5-4.5); Sodium 135 mEq/L (136-145); eGFR For African Americans > 60 (> 60); eGFR For Non-African Americans > 60 (> 60)
[2017-01-16 00:41] LABS: Acetaminophen < 1.0 mcg/mL (10-30); Ethanol < 10 mg/dL (0-10); Salicylate < 5.0 mg/dL (15-30)
--- NOTE | 2017-01-16 03:02 | Emergency Department Note ---
Disposition Clinical Impression: Overdose Disposition: Admitted As Inpatient Condition: Fair Referrals: NO,PCP [Primary Care Provider] - Forms: ED Satisfaction Letter Time of Disposition: 04:11 General Adult HPI - General Chief complaint: ED Psychiatric Symptoms Stated complaint: intentional overdose/SI Time Seen by Provider: 01/15/17 23:12 Source: patient, EMS Mode of arrival: private vehicle Limitations: no limitations Nursing Notes Reviewed: Yes Vital Signs Reviewed: Yes - History of Present Illness HPI Narrative: 21-year-old male presents to emergency department after an intentional overdose. Patient states that he was attempting to commit suicide. Patient took a total of 20 mg of Cogentin and 100 mg of Celexa. Poison control was called and recommended observation and a psychiatric evaluation. Patient currently resting comfortably in no acute distress. Vital signs within normal limits. 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 Pain Severity: mild Pain Scale: 2 Consistency: constant Improves with: nothing Worsens with: nothing Associated symptoms: Reports: other (Suicidal ideation, intentional overdose.) Treatments Prior to Arrival: none - Related Data Previous Rx's Medication Instructions Recorded Citalopram [CeleXA] 30 mg PO DAILY #30 tablet 12/22/16 Ziprasidone [Geodon] 20 mg PO BID #60 capsule 12/22/16 Benztropine [Cogentin] 1 mg PO BID #30 tablet 12/30/16 Allergies Allergy/AdvReac Type Severity Reaction Status Date / Time Amoxicillin Allergy Hives Verified 05/03/16 22:33 All systems ED: reviewed and negative except as stated. Constitutional: Denies: fever, chills Cardiovascular: Denies: chest pain Respiratory: Denies: cough, dyspnea Gastrointestinal: Denies: abdominal pain, nausea, vomiting Musculoskeletal: Denies: back pain, neck pain Integumentary: Denies: rash, abrasion, lesions Neurological: Denies: headache Psychiatric: Reports: anxiety, depression, suicidal thoughts Past Medical History - Past Medical History Medical history: Reports: other Surgical history: Reports: no surgical history Psychiatric history: Reports: schizophrenia, previous psychiatric hospitalization - Social History Smoking Status: Current every day smoker Smokeless Tobacco Status: Yes Alcohol use: Reports: none Drug use: Reports: none Physical Exam - General General appearance: alert, anxious Course Course Narrative: Vital signs remained within normal limits. Patient continues to rest comfortably. No acute distress noted. Patient has not had any nausea, vomiting , irritability, chest pain, shortness of breath or tachycardia. Plan is to admit patient to hospital for observation and psychiatric evaluation. Vital Signs Temperature 97.5 F L 01/15/17 22:54 Pulse Rate 91 01/15/17 22:54 Respiratory Rate 18 01/15/17 22:54 Blood Pressure 135/83 01/15/17 22:54 O2 Sat by Pulse Oximetry 99 01/15/17 22:54 Temperature 98.9 F 01/16/17 02:42 Pulse Rate 94 01/16/17 02:42 Respiratory Rate 18 01/16/17 02:42 Blood Pressure 132/89 01/16/17 02:42 O2 Sat by Pulse Oximetry 98 01/16/17 02:42 Oxygen Delivery Oxygen Delivery Room Air Medical Decision Making - Lab Data Result diagrams: 01/15/17 23:55 01/15/17 23:55 Lab Results 01/15/17 01/15/17 01/15/17 Range/Units 23:19 23:19 23:55 WBC 13.4 H (4.3-11.1) K/mcL RBC 5.09 (4.19-5.50) M/mcL Hgb 15.3 (12.9-16.9) g/dL Hct 44.8 (37.5-50.1) % MCV 88.0 (83.0-100.0) fL MCH 30.1 (28.0-33.3) pg MCHC 34.2 (31.6-35.5) g/dL RDW 13.2 (11.5-14.5) % Plt Count 224 (140-400) K/mcL MPV 9.3 L (9.4-12.4) fL Immature Gran % 0.5 (0-4) % Seg Neutrophils % 77.7 % Lymphocytes % 12.9 % Monocytes % 7.8 % Eosinophils % 0.7 % Basophils % 0.4 % Neutrophils # 10.4 H (1.6-8.9) K/mcL Lymphocytes # 1.7 (0.6-4.6) K/mcL Monocytes # 1.0 (0.0-1.3) K/mcL Eosinophils # 0.1 (0.0-0.6) K/mcL Basophils # 0.1 (0.0-0.2) K/mcL Immature Plt Fraction 2.6 (1.1-6.1) % Sodium (136-145) mEq/L Potassium (3.5-4.5) mEq/L Chloride (98-109) mEq/L Carbon Dioxide (19-29) mEq/L BUN (8-26) mg/dL Creatinine (0.72-1.25) mg/dL Est GFR ( Amer) (> 60) Est GFR (Non-Af Amer) (> 60) BUN/Creatinine Ratio (6-26) Glucose (70-99) mg/dL Calculated Osmolality (280-300) Calcium (8.6-10.8) mg/dL Urine Color Yellow (Yellow) Urine Clarity Clear (Clear) Urine pH 6.5 (5.0-8.0) pH Units Ur Specific Arnold 1.005 L (1.010-1.025) Urine Protein Negative (Neg-Trace) mg/dL Urine Glucose (UA) Normal (Normal) mg/dL Urine Ketones Negative (Negative) mg/dL Urine Blood Negative (Negative) Urine Nitrite Negative (Negative) Urine Bilirubin Negative (Negative) Urine Urobilinogen Normal (Normal) mg/dL Ur Leukocyte Esterase Negative (Negative) Salicylates (15-30) mg/dL Urine Opiates Screen Negative (Jtmlmq=206) ng/mL Acetaminophen (10-30) mcg/mL Ur Barbiturates Screen Negative (Xssvye=775) ng/mL Ur Phencyclidine Scrn Negative (Cutoff=25) ng/mL Ur Amphetamines Screen Negative (Zeahwu=3750) ng/mL U Benzodiazepines Scrn Negative (Wiygun=095) ng/mL Urine Cocaine Screen Negative (Cutoff= 300) ng/mL U Marijuana (THC) Screen Negative (Cutoff = 50) ng/mL Ethyl Alcohol (0-10) mg/dL 01/15/17 Range/Units 23:55 WBC (4.3-11.1) K/mcL RBC (4.19-5.50) M/mcL Hgb (12.9-16.9) g/dL Hct (37.5-50.1) % MCV (83.0-100.0) fL MCH (28.0-33.3) pg MCHC (31.6-35.5) g/dL RDW (11.5-14.5) % Plt Count (140-400) K/mcL MPV (9.4-12.4) fL Immature Gran % (0-4) % Seg Neutrophils % % Lymphocytes % % Monocytes % % Eosinophils % % Basophils % % Neutrophils # (1.6-8.9) K/mcL Lymphocytes # (0.6-4.6) K/mcL Monocytes # (0.0-1.3) K/mcL Eosinophils # (0.0-0.6) K/mcL Basophils # (0.0-0.2) K/mcL Immature Plt Fraction (1.1-6.1) % Sodium 135 L (136-145) mEq/L Potassium 3.2 L (3.5-4.5) mEq/L Chloride 99 (98-109) mEq/L Carbon Dioxide 27 (19-29) mEq/L BUN 7 L (8-26) mg/dL Creatinine 0.86 (0.72-1.25) mg/dL Est GFR ( Amer) > 60 (> 60) Est GFR (Non-Af Amer) > 60 (> 60) BUN/Creatinine Ratio 8 (6-26) Glucose 111 H (70-99) mg/dL Calculated Osmolality 279 L (280-300) Calcium 9.3 (8.6-10.8) mg/dL Urine Color (Yellow) Urine Clarity (Clear) Urine pH (5.0-8.0) pH Units Ur Specific Arnold (1.010-1.025) Urine Protein (Neg-Trace) mg/dL Urine Glucose (UA) (Normal) mg/dL Urine Ketones (Negative) mg/dL Urine Blood (Negative) Urine Nitrite (Negative) Urine Bilirubin (Negative) Urine Urobilinogen (Normal) mg/dL Ur Leukocyte Esterase (Negative) Salicylates < 5.0 L (15-30) mg/dL Urine Opiates Screen (Xyrvjz=186) ng/mL Acetaminophen < 1.0 L (10-30) mcg/mL Ur Barbiturates Screen (Zlfedh=849) ng/mL Ur Phencyclidine Scrn (Cutoff=25) ng/mL Ur Amphetamines Screen (Wuhoac=0540) ng/mL U Benzodiazepines Scrn (Pyyyvs=645) ng/mL Urine Cocaine Screen (Cutoff= 300) ng/mL U Marijuana (THC) Screen (Cutoff = 50) ng/mL Ethyl Alcohol < 10 (0-10) mg/dL
--- NOTE | 2017-01-16 04:43 | Internal Med History&Physical ---
Date of Encounter: 01/16/17 Time of Encounter: 04:40 Assessment and Plan (1) Overdose Current visit: Yes Status: Acute Patient with unintentional suicide attempts. Overdosed on Celexa 100 mg and Cogentin [address] congestion. We will keep patient for observation for monitoring of cardiac arrhythmias. his QRS duration and QTC interval are normal. Suicide precautions and setter at that site. Psychiatry evaluation. Replace hypokalemia. Qualifiers: Qualified Code(s): T50.901A - Poisoning by unspecified drugs, medicaments and biological substances, accidental (unintentional), initial encounter Internal Medicine - H&P: HPI Chief complaint: overdose History of present illness: Mr. Aguila is a 21 year old male presents emergency room today whether suicide attempts. Patient overdosed on 20 mg of Cogentin as well as 100 mg of Celexa. He did this as a suicide attempts. He heard voices asking him to overdose. He denies any other co-ingestion. He is alert and oriented during my interview. Denies any chest pain shortness of breath. He is maintaining his airway. Past Med Surg Social Fam HX - Past Medical History Medical history: other Psychiatric history: schizophrenia, previous psychiatric hospitalization - Past Surgical History Surgical History: no surgical history - Social History Smoking Status: Current every day smoker Smokeless Tobacco Status: Yes Alcohol use: none Drug use: none - Family History Mother Hx Family GI Disorders: Yes (ulcers) Internal Medicine - H&P: Meds Citalopram [CeleXA] 30 mg PO DAILY #30 tablet 12/22/16 [Rx] Ziprasidone [Geodon] 20 mg PO BID #60 capsule 12/22/16 [Rx] Benztropine [Cogentin] 1 mg PO BID #30 tablet 12/30/16 [Rx] Allergies Amoxicillin Allergy (Verified 05/03/16 22:33) Hives All Systems PM: A 10-system review of systems was performed and is negative for pertinent findings except as documented above in the HPI. Review of systems: 10 point video systems is negative except for HPI - Constitutional Vitals: Temp Pulse Resp BP Pulse Ox 98.2 F 80 16 130/81 96 01/16/17 04:33 01/16/17 04:33 01/16/17 04:33 01/16/17 04:33 01/16/17 04:33 Exam: Gen.: patient is alert oriented times 3 not in distress cardiac: normal S1 S2 no additional sounds are murmurs chest: clear to auscultation abdomen: soft nontender nondistended lower extremity lax calf muscles no swelling Neuro: no focal deficits Internal Med - H&P Results - Labs CBC & Chem 7: 01/15/17 23:55 01/15/17 23:55
--- NOTE | 2017-01-16 12:28 | Consult Note ---
Date of Encounter: 01/16/17 Time of Encounter: 11:57 Assessment & Recommendation (1) Schizophrenia, paranoid type Current visit: Yes Status: Acute Assessment & Recommendation: Patient is seen and interviewed. After reviewing the symptoms, diagnosis, treatment plan, risks, benefits, side effects, alternative to treatments and consequences of no treatment it is decided that patient needed a safe environment as he is acutely psychotic and suicidal and as soon as patient is medically cleared he should be transferred to 1A for further stabilization of this condition and for safety reasons. In the meantime I would recommend continuing the sitter. I also recommend getting an EKG prior to his transfer to the psych floor. Thank you very much for the consult please feel free to ask any further questions History of Present Illness Patient: known to practice within the last 3 years Requesting Physician: Kristofer Villagran MD Reason for consult: Suicide attempt History of present illness: Mr. Aguila is a 21 year old male Was admitted on the MedSur floor after he attempted to end his life by taking 20 mg of Cogentin and 100 mg of Celexa. Patient is known to us from prior hospitalizations. He is noted to have history of psychotic disorder. Patient was recently discharged approximately a month ago from a psychiatric facility. Patient reported that he has been noticing a relapse of his psychotic symptoms with auditory hallucinations. He reported that he is "hearing voices which are commanding in nature telling him to hurt himself. He also reported that he is extremely paranoid and fearful towards his father whom he resides with. He fears that there are people were trying to get him and harm him. He reported that he has not been leaving his house and is basically becoming more withdrawn due to the fear of people trying to harm him. He reported that these voices got out of control last night and was constantly telling him to harm himself and he acted on those voices and decided to overdose and end his life. During the interview patient was constantly looking around as if responding to internal stimuli and also reported of continuous auditory hallucinations. He was extremely fearful and paranoid throughout the interview. CC: Kristofer Villagran MD Past Med Surg Social Fam HX - Past Medical History Medical history: other - Past Psychiatric History Psychiatric history: Reports: schizophrenia, previous psychiatric hospitalization Past psychiatric history details: Patient reported that he has been struggling from fearfulness paranoia and auditory hallucinations for more than a year. He reported that he was diagnosed with schizophrenia. He has been hospitalized on 2 other occasions at [facility]. His last hospitalization was approximately a month ago. Family psychiatric history: No Family History of Suicide: Unknown - Past Surgical History Surgical History: no surgical history - Social History Smoking Status: Current every day smoker Smokeless Tobacco Status: Yes Alcohol use: none Drug use: none Occupational status: disabled Current living situation: Home, With Family Activity Level: Independent ambulation Recent Out of Country Travel Within the Last 8 Weeks: No Exposure or Possible Exposure to Illness During Travel: No Additional social history: Patient born in [place]. He graduated high school. He is currently unemployed and is on disability single has no children and resides with his father. He denies any legal issues. - Family History Mother Hx Family GI Disorders: Yes (ulcers) Medications & Allergies Citalopram [CeleXA] 30 mg PO DAILY #30 tablet 12/22/16 [Rx] Benztropine [Cogentin] 1 mg PO BID #30 tablet 12/30/16 [Rx] Ziprasidone HCl [Geodon] 20 mg PO BID 01/16/17 [History] Allergies Amoxicillin Allergy (Verified 01/16/17 12:02) Anmol Review of Systems Psychiatric: Reports: anxiety, abnormal sleep pattern, suicidal ideation, auditory hallucinations Mental Status Exam Patient orientation: Yes Person, Yes Time, Yes Place Level of alertness: Alert Patient appearance: Appropriate Behavior: nervous, anxious, suspicious, fearful Psychomotor activity: Increased Eye contact: Maintains Eye Contact Mood description: Anxious Affect description: constricted, dysphoric, anxious Speech pattern: Normal rate, Normal rhythm, Normal tone Speech volume: Normal Thought process: Intact, Linear, Goal Oriented Thought content: Yes Suicidal ideation, Yes Paranoid delusion Perceptual disturbances: Yes Auditory hallucinations Attention span: Unable to Focus Memory description: Grossly Intact Patient reliability: Reliable Historian Intelligence estimate: Average Judgment: Limited Insight: Minimal Results - Vital Signs Vital signs: Temp Pulse Resp BP Pulse Ox 97.9 F 78 16 108/65 96 01/16/17 11:33 01/16/17 11:33 01/16/17 11:33 01/16/17 11:33 01/16/17 11:33 - Labs Labs: Laboratory Last Values WBC 13.4 K/mcL (4.3-11.1) H 01/15/17 23:55 RBC 5.09 M/mcL (4.19-5.50) 01/15/17 23:55 Hgb 15.3 g/dL (12.9-16.9) 01/15/17 23:55 Hct 44.8 % (37.5-50.1) 01/15/17 23:55 MCV 88.0 fL (83.0-100.0) 01/15/17 23:55 MCH 30.1 pg (28.0-33.3) 01/15/17 23:55 MCHC 34.2 g/dL (31.6-35.5) 01/15/17 23:55 RDW 13.2 % (11.5-14.5) 01/15/17 23:55 Plt Count 224 K/mcL (140-400) 01/15/17 23:55 MPV 9.3 fL (9.4-12.4) L 01/15/17 23:55 Immature Gran % 0.5 % (0-4) 01/15/17 23:55 Seg Neutrophils % 77.7 % 01/15/17 23:55 Lymphocytes % 12.9 % 01/15/17 23:55 Monocytes % 7.8 % 01/15/17 23:55 Eosinophils % 0.7 % 01/15/17 23:55 Basophils % 0.4 % 01/15/17 23:55 Neutrophils # 10.4 K/mcL (1.6-8.9) H 01/15/17 23:55 Lymphocytes # 1.7 K/mcL (0.6-4.6) 01/15/17 23:55 Monocytes # 1.0 K/mcL (0.0-1.3) 01/15/17 23:55 Eosinophils # 0.1 K/mcL (0.0-0.6) 01/15/17 23:55 Basophils # 0.1 K/mcL (0.0-0.2) 01/15/17 23:55 Immature Plt Fraction 2.6 % (1.1-6.1) 01/15/17 23:55 Sodium 135 mEq/L (136-145) L 01/15/17 23:55 Potassium 3.2 mEq/L (3.5-4.5) L 01/15/17 23:55 Chloride 99 mEq/L (98-109) 01/15/17 23:55 Carbon Dioxide 27 mEq/L (19-29) 01/15/17 23:55 BUN 7 mg/dL (8-26) L 01/15/17 23:55 Creatinine 0.86 mg/dL (0.72-1.25) 01/15/17 23:55 Est GFR ( Amer) > 60 (> 60) 01/15/17 23:55 Est GFR (Non-Af Amer) > 60 (> 60) 01/15/17 23:55 BUN/Creatinine Ratio 8 (6-26) 01/15/17 23:55 Glucose 111 mg/dL (70-99) H 01/15/17 23:55 Calculated Osmolality 279 (280-300) L 01/15/17 23:55 Calcium 9.3 mg/dL (8.6-10.8) 01/15/17 23:55 Urine Color Yellow (Yellow) 01/15/17 23:19 Urine Clarity Clear (Clear) 01/15/17 23:19 Urine pH 6.5 pH Units (5.0-8.0) 01/15/17 23:19 Ur Specific [place] 1.005 (1.010-1.025) L 01/15/17 23:19 Urine Protein Negative mg/dL (Neg-Trace) 01/15/17 23:19 Urine Glucose (UA) Normal mg/dL (Normal) 01/15/17 23:19 Urine Ketones Negative mg/dL (Negative) 01/15/17 23:19 Urine Blood Negative (Negative) 01/15/17 23:19 Urine Nitrite Negative (Negative) 01/15/17 23:19 Urine Bilirubin Negative (Negative) 01/15/17 23:19 Urine Urobilinogen Normal mg/dL (Normal) 01/15/17 23:19 Ur Leukocyte Esterase Negative (Negative) 01/15/17 23:19 Salicylates < 5.0 mg/dL (15-30) L 01/15/17 23:55 Urine Opiates Screen Negative ng/mL (Kpbira=600) 01/15/17 23:19 Acetaminophen < 1.0 mcg/mL (10-30) L 01/15/17 23:55 Ur Barbiturates Screen Negative ng/mL (Oqrayb=038) 01/15/17 23:19 Ur Phencyclidine Scrn Negative ng/mL (Cutoff=25) 01/15/17 23:19 Ur Amphetamines Screen Negative ng/mL (Zcwrod=1119) 01/15/17 23:19 U Benzodiazepines Scrn Negative ng/mL (Byiogi=355) 01/15/17 23:19 Urine Cocaine Screen Negative ng/mL (Cutoff= 300) 01/15/17 23:19 U Marijuana (THC) Screen Negative ng/mL (Cutoff = 50) 01/15/17 23:19 Ethyl Alcohol < 10 mg/dL (0-10) 01/15/17 23:55 Consult Discharge Plan - Plan Referrals: NO,PCP [Primary Care Provider] -
--- NOTE | 2017-01-16 16:12 | Internal Med Progress Note ---
<Cipriano Hay - Last Filed: 01/16/17 16:17> Date of Encounter: 01/16/17 Time of Encounter: 13:15 - Assessment and plan (1) Overdose Current Visit: Yes Status: Acute Assessment and plan: patient had intentional overdose with celexa. QT interval has remained stable. No other vital sign abnormalities or major abnormalities on his lab work. Repeat EKG ordered for AM. If QT interval within normal range recommend transferring to 1A. Qualifiers: Qualified Code(s): T50.901A - Poisoning by unspecified drugs, medicaments and biological substances, accidental (unintentional), initial encounter (2) Schizophrenia, paranoid type Current Visit: Yes Status: Acute Assessment and plan: appreciated psychiatrys recommendations. we will defer to them as to when to reintroduce antipsychotics. (3) Acute psychosis Current Visit: No Status: Acute Assessment and plan: patient currently calm continue sitter. (4) Hypokalemia Current Visit: Yes Status: Acute Assessment and plan: replaced this AM. Follow up with AM labs and check Mg. (5) DVT prophylaxis Current Visit: Yes Status: Acute Assessment and plan: low risk. EPCDs - Subjective Interval history: No major events overnight. Patient denies chest pain, dyspnea, cough, wheeze. He denies any complaints this AM. He speaks very little this AM. He dose answer questions appropriately. He has no further concerns at this time. - Constitutional Vitals: Temp Pulse Resp BP Pulse Ox 98.3 F 59 16 125/75 96 01/16/17 12:54 01/16/17 12:54 01/16/17 12:54 01/16/17 12:54 01/16/17 12:54 General appearance: Present: A&O X 3, no acute distress - Head Head exam: Present: atraumatic, normocephalic - Eye Eye exam: Present: PERRL, conjuntiva pink, sclera anicteric Pupils: Present: PERRL - Neck Neck exam general surgery: Present: supple, trachea midline. Absent: lymphadenopathy - Respiratory Respiratory exam: Present: CTAB. Absent: accessory muscle use, rales, rhonchi, wheezes - Cardiovascular Cardiovascular exam: Present: RRR, +S1, +S2. Absent: diastolic murmur, gallop, rubs, systolic murmur - GI/Abdominal GI/Abdominal exam: Present: normal bowel sounds, soft, no peritoneal signs. Absent: distended, tenderness - Extremities Exam Extremities exam: Present: warm, radial pulses palpable and symetrical. Absent : calf tenderness, cyanotic, pedal edema - Neurological Exam Neurological exam: Present: oriented X3, no focal deficits. Absent: pronater drift, facial droop, speech deficit Additional comments: appears anxious - Skin Skin exam: Present: dry, intact Internal Medicine: Result - Labs CBC & Chem 7: 01/15/17 23:55 01/15/17 23:55 Consult Discharge Plan - Plan Referrals: NO,PCP [Primary Care Provider] - <Kristofer Villagran - Last Filed: 01/16/17 19:30> Date of Encounter: 01/16/17 - Constitutional Vitals: Temp Pulse Resp BP Pulse Ox 98.3 F 59 16 125/75 96 01/16/17 12:54 01/16/17 12:54 01/16/17 12:54 01/16/17 12:54 01/16/17 12:54 Internal Medicine: Result - Labs CBC & Chem 7: 01/15/17 23:55 01/15/17 23:55 - Attending Attestation I examined this patient and my medical decision-making was reviewed with the Resident Physician, Dr. Hay. I agree with the documented findings, disposition and treatment plan as described except to the extent set forth below. the patient suffers from active psychosis and was admitted with medication overdose and suicidal ideation. he remains at high risk for self-harm and requires psychiatric hospitalization. We will monitor mental status sylvie Closely. Continue cardiac monitoring for early detection of arrhythmias. EKG to check QTc interval.
[2017-01-16 19:39] LABS: BUN/Creatinine Ratio 11 (6-26); Blood Urea Nitrogen 11 mg/dL (8-26); Carbon Dioxide 24 mEq/L (19-29); Chloride 104 mEq/L (98-109); Glucose 132 mg/dL (70-99); Magnesium 2.1 mg/dL (1.6-2.6); Osmolality,Calculated 287 (280-300); Potassium 3.7 mEq/L (3.5-4.5); Sodium 138 mEq/L (136-145); eGFR For African Americans > 60 (> 60); eGFR For Non-African Americans > 60 (> 60)
[2017-01-17 04:00] LABS: Basophils % 0.4 %; Eosinophils # 0.2 K/mcL (0.0-0.6); Eosinophils % 1.7 %; Hematocrit 48.7 % (37.5-50.1); Hemoglobin 16.1 g/dL (12.9-16.9); Immature Granulocytes % 0.5 % (0-4); Lymphocytes # 3.1 K/mcL (0.6-4.6); Lymphocytes % 32.1 %; Mean Corpuscular HGB Conc 33.1 g/dL (31.6-35.5); Mean Corpuscular Hemoglobin 29.9 pg (28.0-33.3); Mean Corpuscular Volume 90.5 fL (83.0-100.0); Mean Platelet Volume 9.5 fL (9.4-12.4); Monocytes % 9.8 %; Neutrophils # 5.4 K/mcL (1.6-8.9); Platelet Count 217 K/mcL (140-400); Red Blood Count 5.38 M/mcL (4.19-5.50); Red Cell Distribution Width 13.6 % (11.5-14.5); Segmented Neutrophils % 55.5 %
[2017-01-17 04:10] LABS: BUN/Creatinine Ratio 13 (6-26); Blood Urea Nitrogen 13 mg/dL (8-26); Calcium 9.4 mg/dL (8.6-10.8); Carbon Dioxide 27 mEq/L (19-29); Chloride 105 mEq/L (98-109); Creatine Kinase 91 Units/L (30-200); Glucose 96 mg/dL (70-99); Magnesium 2.5 mg/dL (1.6-2.6); Osmolality,Calculated 290 (280-300); Potassium 4.1 mEq/L (3.5-4.5); Sodium 140 mEq/L (136-145); eGFR For African Americans > 60 (> 60); eGFR For Non-African Americans > 60 (> 60)
[2017-01-17] MEDS ORDERED: Methocarbamol 500 MG TABLET PO ONE (05:10)
[2017-01-17] MEDS ORDERED: Acetaminophen 325 MG TABLET PO ONE (08:40)
[2017-01-17] MEDS ORDERED: Ibuprofen 600 MG TABLET PO PRN (09:14)
--- NOTE | 2017-01-17 10:27 | Internal Med Progress Note ---
Date of Encounter: 01/17/17 Time of Encounter: 08:20 - Assessment and plan (1) Overdose Current Visit: Yes Status: Acute Assessment and plan: 01/17 QTc has remained stable and normal. 01/16 patient had intentional overdose with celexa. QT interval has remained stable. No other vital sign abnormalities or major abnormalities on his lab work. Repeat EKG ordered for AM. If QT interval within normal range recommend transferring to 1A. (2) Schizophrenia, paranoid type Current Visit: Yes Status: Acute Assessment and plan: appreciated psychiatry's recommendations. we will defer to them as to when to reintroduce antipsychotics. (3) Hypokalemia Current Visit: Yes Status: Resolved Assessment and plan: Potassium 4.1 today. (4) Low back pain without sciatica Current Visit: Yes Status: Acute Assessment and plan: The patient complains of acute low back pain that he believes is associated with muscle tension in his lower back. There is no indication that this is the result of injury or underlying pathology, and the patient is having no radicular pain. The patient received methocarbamol once which he said was helpful in relieving his pain. Given that his kidney function appears intact with GFR >60, we will provide PRN Ibuprofen for pain at this time. Qualifiers: Chronicity: acute Back pain laterality: bilateral Qualified Code(s): M54.5 - Low back pain (5) DVT prophylaxis Current Visit: Yes Status: Acute Assessment and plan: low risk. EPCDs - Subjective Interval history: The patient was lying in bed asleep when I entered the room. He was alert to voice and oriented 3. He states that the voices have subsided for the most part, he has not had any voices suggesting that he harm himself or anyone else. He denies any suicidal or homicidal ideations at this time. He does state that he is having lower back pain which began in the middle of the night. He attributes the pain to muscle tightness and says that the muscle relaxer he received helped somewhat. He says the pain is 5 out of 10 and constant. He denies any urinary or fecal incontinence, or any pain that shoots down his legs. He cannot remember any traumatic event or injury that may have caused this. - Constitutional Vitals: Temp Pulse Resp BP Pulse Ox 97.9 F 70 17 118/58 92 01/17/17 07:41 01/17/17 07:41 01/17/17 07:41 01/17/17 07:41 01/17/17 08:25 General appearance: Present: A&O X 3, no acute distress - Back Exam Back exam: Present: full ROM, paraspinal tenderness, vertebral tenderness Additional comments: Patient has normal appearing back. There is no erythema, ecchymosis, edema. Full Active and passive range of motion that is not limited by pain. Patient has expressed tenderness to palpation that is worse along the vertebrea L3-S4, with some paraspinal tenderness as well. Straight leg raise is negative bilaterally, senses normal and equal b/l, muscle strength of LE's 5/5 b/l. - Expanded Back Exam Back exam: negative straight leg raising: Left, positive straight leg raise: Left - Neurological Exam Neurological exam: Present: CN II-XII intact, reflexes normal, no focal deficits Internal Medicine: Result - Labs CBC & Chem 7: 01/17/17 03:41 01/17/17 03:41 Labs: Short CBC 01/17/17 Range/Units 03:41 WBC 9.8 (4.3-11.1) K/mcL Hgb 16.1 (12.9-16.9) g/dL Hct 48.7 (37.5-50.1) % Plt Count 217 (140-400) K/mcL Neutrophils # 5.4 (1.6-8.9) K/mcL BMP 01/16/17 01/17/17 19:21 03:41 Sodium 138 140 Potassium 3.7 4.1 Chloride 104 105 Carbon Dioxide 24 27 BUN 11 13 Creatinine 0.98 1.04 Glucose 132 H 96 Calcium 9.0 9.4 - EKG Interpretation EKG Interpreted by Myself: Yes (QTC normal) EKG shows normal: sinus rhythm Rate: normal - Impressions Impressions Videofluoroscopic Swallow 01/17/17 08:18 IMPRESSION: No evidence of aspiration. Please see separate speech pathology report for full discussion of findings and recommendations. D/ / Russell Villanueva MD / Russell Villanueva MD Interpreting Provider: Russell Villanueva MD Consult Discharge Plan - Plan Referrals: NO,PCP [Primary Care Provider] -
--- NOTE | 2017-01-17 12:24 | Electrocardiograph Report ---
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
--- NOTE | 2017-01-17 12:32 | Electrocardiograph Report ---
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
--- NOTE | 2017-01-17 14:03 | Discharge Summary ---
Addendum entered and electronically signed by Darrion Lopez DO 01/17/17 15: 20: [facility] due to overdose of Celexa. Vision has a history of paranoid schizophrenia and he states that he heard voices which told him he should overdose on Celexa. He was admitted for observation. He did serial EKGs which showed a normal QTC. Psychiatry was consulted and recommended that the patient be transferred to one A psych unit following medical clearance. Because his QTC has remained normal patient is eligible for discharge to psychiatric araiza where his antipsychotic medications will be adjusted. Original Note: <Darrion Lopez - Last Filed: 01/17/17 14:14> Date of Encounter: 01/17/17 Time of Encounter: 08:30 - Discharge Diagnosis (1) Overdose Priority: Primary Status: Acute Comments: QTc has remained normal and stable at around 417, and patient can be safely discharged to psychiatric facility. Qualifiers: Injury intent: intentional self-harm Qualified Code(s): T50.902A - Poisoning by unspecified drugs, medicaments and biological substances, intentional self-harm, initial encounter (2) Schizophrenia, paranoid type Priority: Primary Status: Acute Comments: We will continue to defer to psychiatry's recommendations regarding the continuation and management of his antipsychotic medications. Patient will be transferred to 1A psych araiza. (3) Hypokalemia Priority: Secondary Status: Resolved (4) Low back pain without sciatica Priority: Secondary Status: Acute Comments: Patient complains of acute lower back pain which he believes is associated with some muscle tension in his lower back. There is no indication that this is the result of an injury or underlying pathology, and the patient is having no radicular pain. The patient received methocarbamol once, which she said was helpful in relieving his pain. His kidney function appears intact with GFR greater than 60, we will provide PRN ibuprofen for pain at this time. Qualifiers: Chronicity: acute Back pain laterality: bilateral Qualified Code(s): M54.5 - Low back pain (5) DVT prophylaxis Priority: Secondary Status: Acute Comments: SCDs - Discharge Medications Home Medications: Citalopram [CeleXA] 30 mg PO DAILY #30 tablet 12/22/16 [Rx] Benztropine [Cogentin] 1 mg PO BID #30 tablet 06/22/17 [Rx] Ziprasidone HCl [Geodon] 20 mg PO BID 01/16/17 [History] Allergies/Adverse Reactions: Allergies Amoxicillin Allergy (Verified 01/16/17 12:02) Hives Procedures/tests Complete & Pending: Procedures Performed prior 72 hours Category Date Time Status EKG [ECG 12 lead ECG] [ECG] AM 0600 Y 01/17/17 06:00 Completed EKG [ECG 12 lead ECG] [ECG] Routine Y 01/16/17 12:01 Completed Date of admission: 01/16/17 03:41 Primary care physician: PCP NO Consults: 01/16/17 04:39 Consult to Psychiatry [CONS] Routine Consulting Provider: Psychiatry Viola Reason for Consult: suicide attempt Call Completed: No 01/16/17 06:13 Consult to Speech Therapy [CONS] Routine Comment: Evaluate, develop and implement POC Reason for Consult: Difficulty swallowing, OD patient Call Completed: No - Patient Status Disposition: Transfer Psychiatric Hosp Condition: Good Functional capacity at discharge: independent ambulation Overall status at discharge: patient is back to baseline - Discharge Instructions Follow Up With: NO,PCP [Primary Care Provider] - - Diet and Activity Activity: increase activity as tolerated, resume usual activities as tolerated Diet: advance to your usual diet Interval History: The patient was lying in bed asleep when I entered the room. He was alert to voice and oriented 3. He states with that the voices subsided for the most part, he has not had any voices interest in harming himself or anybody else. He denies any suicidal or homicidal ideations at this time. He does state that he is having lower back pain, which began in the middle of the night. He attributes the pain to muscle tightness and says that the muscle relaxer he received helped with that. He says the pain is 5 out of 10 and constant. He denies any urinary or fecal incontinence, or any pain that shoots down his legs. Not remember any traumatic event or injury that may have caused this. Hospital course: Mr. Aguila is a 21 year old male - Time Spent with Patient Total time spent providing and/or coordinating discharge services: - Constitutional Vitals: Temp Pulse Resp BP Pulse Ox 97.9 F 70 17 118/58 92 01/17/17 07:41 01/17/17 07:41 01/17/17 07:41 01/17/17 07:41 01/17/17 08:25 General appearance: Present: A&O X 3, no acute distress - Head Head exam: Present: atraumatic, normocephalic - Eye Eye exam: Present: PERRL, conjuntiva pink, sclera anicteric Pupils: Present: PERRL - Neck Neck exam general surgery: Present: supple, trachea midline. Absent: lymphadenopathy - Respiratory Respiratory exam: Present: CTAB. Absent: accessory muscle use, rales, rhonchi, wheezes - Cardiovascular Cardiovascular exam: Present: RRR, +S1, +S2. Absent: diastolic murmur, gallop, rubs, systolic murmur - GI/Abdominal GI/Abdominal exam: Present: normal bowel sounds, soft, no peritoneal signs. Absent: distended, tenderness - Extremities Exam Extremities exam: Present: warm, radial pulses palpable and symetrical. Absent : calf tenderness, cyanotic, pedal edema - Back Exam Back exam: Present: full ROM, muscle spasm, paraspinal tenderness, vertebral tenderness Additional comments: Patient has normal-appearing back. There is no erythema, ecchymosis, or edema. Full active and passive range of motion that is not limited by pain. Patient has expressed tenderness to palpation that is worse along vertebrae L3-S4, with some paraspinal tenderness as well. Straight leg raise is negative bilaterally , since is normal and equal bilaterally, muscle strength lower extremities is 5/ 5 b/l - Neurological Exam Neurological exam: Present: CN II-XII intact, oriented X3, no focal deficits. Absent: pronater drift, facial droop, speech deficit - Skin Skin exam: Present: dry, intact <Kristofer Villagran - Last Filed: 01/17/17 19:16> Date of Encounter: 01/17/17 Procedures/tests Complete & Pending: Procedures Performed prior 72 hours Category Date Time Status EKG [ECG 12 lead ECG] [ECG] AM 0600 Y 01/17/17 06:00 Completed EKG [ECG 12 lead ECG] [ECG] Routine Y 01/16/17 12:01 Completed Date of admission: 01/16/17 03:41 Primary care physician: PCP NO Consults: 01/16/17 04:39 Consult to Psychiatry [CONS] Routine Consulting Provider: Psychiatry Viola Reason for Consult: suicide attempt Call Completed: No 01/16/17 06:13 Consult to Speech Therapy [CONS] Routine Comment: Evaluate, develop and implement POC Reason for Consult: Difficulty swallowing, OD patient Call Completed: No Hospital course: Mr. Aguila is a 21 year old male - Time Spent with Patient Total time spent providing and/or coordinating discharge services: - Constitutional Vitals: Temp Pulse Resp BP Pulse Ox 98.1 F 65 14 117/72 99 01/17/17 15:32 01/17/17 15:32 01/17/17 15:32 01/17/17 15:32 01/17/17 15:32 - Attending Attestation I examined this patient and my medical decision-making was reviewed with the Resident Physician, Dr Lopez. I agree with the documented findings, disposition and treatment plan as described except to the extent set forth below. the patient was admitted withover dose and with suicidal ideation. He is currently medically stable to psychiatry. Awaiting bed availability.
[2017-01-17 15:33] VITALS: BP 117/72
== END 2017-01-17 17:51 | DRG 812 ==
LOC: 3BNU 22:50 → EMEROO 22:50 → SUATTDRO 01-16 03:41 → 3BNU 01-16 04:21
PROVIDERS: ADMIT Internal Medicine Endocrinology, Diabetes & Metabolism; ATTEND Internal Medicine

== ENCOUNTER 2017-01-17 17:53 | Inpatient (IN) ==
[2017-01-17] MEDS ORDERED: MOM Conc 10 ML UD.LIQ PO PRN (19:39)
[2017-01-17] MEDS ORDERED: Haloperidol Lactate 5 MG/ML VIAL IM PRN (19:39)
[2017-01-17] MEDS ORDERED: *HR* LORazepam 2 MG/ML VIAL IM PRN (19:39)
[2017-01-17] MEDS ORDERED: Mag Hydrox/Al Hydrox/Simeth 30 ML UDC PO PRN (19:39)
[2017-01-17] MEDS: traZODone 50 MG TABLET PO PRN (20:17)
--- NOTE | 2017-01-18 14:38 | Psychiatry History & Physical ---
Date of Encounter: 01/18/17 Time of Encounter: 14:32 History of Present Illness Patient Stated Chief Complaint: overdose Medicare Admission Attestation: For traditional Medicare patients the provided hospital inpatient services are reasonable and necessary and in the case of services not specified as inpatient -only under 42 CFR 419.22 (n), that they are appropriately provided as inpatient services in accordance 42 CFR 412.3. For Critical Access Hospital the patient may reasonably be expected to be discharged or transferred to a hospital within 96 hours after admission to the Critical Access Hospital. Admitted From: Home Plans for Post Hospital Care: Home History of Present Illness: Mr. Aguila is a 21 year old male who was admitted from medical floor 3B after he overdosed on his home meds of Geodon, Celexa, and Cogentin. Readmit from less than a month ago. Experiencing command AH and distressed by voices. Reports voices yell at him and reluctantly admitted voices told him to take the pills. Denies voices ever tell him to harm others. Seems to want help. Reports prior meds did not help him. If he was not taking Geodon with food he may not have been benefitting from it. Reports he tried another medication prior to Geodon but that it made him lock up. Suspect EPS from a typical antipsychotic. He is a young male with some muscle mass so will try to prescribe him something with less EPS potential. Agreeable to Seroquel. Denies medical problems or drugs of abuse. Unsure of family history. Cooperative but clearly attending to internal stimuli and paranoid/embarrassed about his situation. Past Med Surg Social Fam HX - Past Medical History Medical history: other - Past Psychiatric History Psychiatric history: Reports: prior suicide attempt, schizophrenia, previous psychiatric hospitalization Family psychiatric history: Unknown Family History of Suicide: Unknown - Past Surgical History Surgical History: no surgical history - Social History Smoking Status: Current every day smoker Smokeless Tobacco Status: No Alcohol use: none Drug use: none - Family History Father Age: 40 Living Status: Still Living Hx Family Cardiac Disorders: No Hx Family Respiratory Disorders: No Hx Family Cancer: No Hx Family GI Disorders: No Hx Family Genitourinary Disorders: No Hx Family Endocrine Disorder: No Hx Family Musculoskeletal Disorders: No Hx Family Neuromuscular Disorders: No Hx Family Neurologic Disorders: No Hx Family HEENT Disorders: No Hx Family Autoimmune Disorders: No Hx Family Reproductive Disorders: No Hx Family Psychosocial Disorders: No Hx Family Medical Disorders: No Mother History Unknown: Yes Living Status: Still Living Hx Family GI Disorders: Yes (ulcers) Medications & Allergies Citalopram [CeleXA] 30 mg PO DAILY #30 tablet 12/22/16 [Rx] Benztropine [Cogentin] 1 mg PO BID #30 tablet 12/30/16 [Rx] Ziprasidone HCl [Geodon] 20 mg PO BID 01/16/17 [History] Allergies Amoxicillin Allergy (Verified 01/16/17 12:02) Hives Review of Systems Constitutional: Denies: fever, chills, weakness, weight change Eyes: Denies: eye pain, vision change Ears, Nose, Throat: Denies: ear pain, throat pain, dental pain, hearing loss, congestion Cardiovascular: Denies: chest pain, palpitations, dyspnea on exertion Respiratory: Denies: cough, dyspnea, wheezes Gastrointestinal: Denies: abdominal pain, nausea, vomiting, diarrhea, constipation Genitourinary male: Denies: urgency, dysuria, frequency, genital lesions Genitourinary female: Denies: urgency, dysuria, frequency, abnormal menses, dyspareunia Musculoskeletal: Denies: joint swelling, joint pain Integumentary: Denies: rash, lesions, pruritus Neurological: Denies: headache, weakness, numbness, memory loss Endocrine: Denies: fatigue, heat or cold intolerance Hematologic/Lymphatic: Denies: easy bruising, lymphadenopathy Allergic/Immunologic: Denies: urticaria, itchy eyes Mental Status Exam Patient orientation: Yes Person, Yes Time, Yes Place Level of alertness: Alert Patient appearance: Appropriate, Well Groomed Behavior: calm, cooperative Psychomotor activity: Normal Eye contact: Minimal Contact Mood description: Depressed Affect description: congruent with mood Speech pattern: Delayed Speech volume: Soft/Quiet Thought process: Thought Blocking Thought content: Yes Suicidal ideation, No Homicidal ideation Perceptual disturbances: Yes Reacting to internal stimuli, Yes Auditory hallucinations Attention span: Capable of Focused Attention Memory description: Grossly Intact Patient reliability: Reliable Historian Intelligence estimate: Average Judgment: Limited Insight: Partial Exam - HEENT Head exam IM: Present: normal inspection Eye exam IM: Present: EOMI ENT exam IM: Present: mucous membranes moist - Neurological Neurological exam IM: Present: alert, oriented X3 - Respiratory Respiratory exam IM: Present: CTAB - GI/Abdominal GI/Abdominal exam IM: Present: normal bowel sounds - Extremities Extremities exam IM: Present: full ROM - Skin Skin exam IM: Present: intact Results - Vital Signs Vital signs: Temp Pulse Resp BP 98.2 F 66 16 87/55 01/18/17 09:00 01/18/17 09:00 01/18/17 09:00 01/18/17 09:00 Assessment and Plan (1) Schizophrenia, paranoid type Current visit: No Status: Acute Plan: Admit inpatient for safety and stabilization, Close observation, Suicide Precautions per unit protocol, Encourage participation in unit milieu, Group Therapy, Monitor sleep, Monitor appetite Risks, benefits, side effects, alternatives discussed w/pt: Yes Patient agreeable to treatment: Yes Plans for Post Hospital Care: Home Estimated Length of Stay (Days): 4
--- NOTE | 2017-01-19 13:02 | Psychiatry Progress Note ---
Date of Encounter: 01/19/17 Time of Encounter: 12:59 Subjective Interval history: Still psychotic. Responding to internal stimuli. Distressed. According to staff he is more forthcoming about symptoms then his last admission. Some concern that family members may not be supportive of him getting treatment but Omi seems amenable at this time. Took Seroquel last night. Reports he had no relief from it but denied any side effects. Will start ramping up dose since it appears he is tolerating it. Working on getting him linked with case management services through [facility]. Review of Systems Constitutional: Denies: fever, chills, weakness, weight change Eyes: Denies: eye pain, vision change Ears, Nose, Throat: Denies: ear pain, throat pain, dental pain, hearing loss, congestion Cardiovascular: Denies: chest pain, palpitations, dyspnea on exertion Respiratory: Denies: cough, dyspnea, wheezes Gastrointestinal: Denies: abdominal pain, nausea, vomiting, diarrhea, constipation Musculoskeletal: Denies: joint swelling, joint pain Neurological: Denies: headache, weakness, numbness, memory loss Objective: Exam Patient orientation: Yes Person, Yes Time, Yes Place Level of alertness: Alert Patient appearance: Appropriate, Well Groomed Behavior: calm, cooperative Psychomotor activity: Normal Eye contact: Maintains Eye Contact Mood description: Depressed Affect description: congruent with mood Speech pattern: Normal rate, Normal rhythm, Normal tone Speech volume: Normal Thought process: Thought Blocking Thought content: Yes Suicidal ideation, No Homicidal ideation Perceptual disturbances: Yes Reacting to internal stimuli, Yes Auditory hallucinations Judgment: Limited Insight: Partial Results - Vital Signs Vital Signs: Temp Pulse Resp BP 97.8 F 70 16 107/64 01/19/17 09:00 01/19/17 09:00 01/19/17 09:00 01/19/17 09:00 Assessment and Plan (1) Schizophrenia, paranoid type Current visit: No Status: Acute Plan: Continue hospitalization, Close observation, Suicide Precautions per unit protocol, Encourage participation in unit milieu, Group Therapy, Monitor sleep, Monitor appetite Risks, benefits, side effects, alternatives discussed w/pt: Yes Patient agreeable to treatment: Yes Consult Discharge Plan - Plan Referrals: [facility] [Outside] - 01/24/17 8:30 am (The above appointment is with Veronica Mendez to open your case as a client and for ongoing mental health counseling services. When you come to your first appointment, you will have an orientation to the agency and you will meet with a counselor. Please bring the following with you to your first visit to the clinic: 1) proof of household income (two consecutive pay stubs, social security award letter, bank statement, statement letter from [facility], child support statement, IRS 1040 or W2 form, or a statement from the person who financially supports you stating they help provide for your basic needs), 2) proof of residency (drivers license, a piece of mail showing your address, a statement from person you live with verifying you live at their address), 3) your social security card, 4) photo ID, 5) your insurance card (if you have commercial insurance you must call to obtain a prior authorization number before you arrive to your first appointment) and 6) if you do not have insurance but have applied for Medicaid, please bring verification you have applied. This is the first available appointment. You may contact the office regularly to check for cancellations that may allow you to be seen sooner. You may also walk-in to the clinic anytime during business hours to be seen on crisis if needed. The 24/ crisis line provided to you is also always available. )
[2017-01-19] MEDS: Acetaminophen 325 MG TABLET PO PRN (17:55)
--- NOTE | 2017-01-20 14:31 | Psychiatry Progress Note ---
Date of Encounter: 01/20/17 Time of Encounter: 14:28 Subjective Interval history: Client has not had any benefit from the Seroquel. However, he is also tolerating it with no side effects so will double the dose today. If he does not get any relief from 400mg will need to look at augmentation or switching it to something else. Still experiencing AH and VH. Distressed. Tries to participate in groups but psychosis is interfering. Paces to relieve his anxiety. Evaluated by [facility] yesterday and he was accepted but will need to be more stable first. Review of Systems Constitutional: Denies: fever, chills, weakness, weight change Eyes: Denies: eye pain, vision change Ears, Nose, Throat: Denies: ear pain, throat pain, dental pain, hearing loss, congestion Cardiovascular: Denies: chest pain, palpitations, dyspnea on exertion Respiratory: Denies: cough, dyspnea, wheezes Gastrointestinal: Denies: abdominal pain, nausea, vomiting, diarrhea, constipation Musculoskeletal: Denies: joint swelling, joint pain Neurological: Denies: headache, weakness, numbness, memory loss Objective: Exam Patient orientation: Yes Person, Yes Time, Yes Place Level of alertness: Alert Patient appearance: Appropriate, Well Groomed Behavior: calm, cooperative Psychomotor activity: Normal Eye contact: Maintains Eye Contact Mood description: Depressed Affect description: congruent with mood Speech pattern: Normal rate, Normal rhythm, Normal tone Speech volume: Normal Thought process: Thought Blocking Thought content: Yes Paranoid delusion Perceptual disturbances: Yes Auditory hallucinations, Yes Visual hallucinations Judgment: Limited Insight: Partial Results - Vital Signs Vital Signs: Temp Pulse Resp BP 98.4 F 76 16 104/67 01/20/17 09:00 01/20/17 09:00 01/20/17 09:00 01/20/17 09:00 Assessment and Plan (1) Schizophrenia, paranoid type Current visit: No Status: Acute Plan: Continue hospitalization, Close observation, Suicide Precautions per unit protocol, Encourage participation in unit milieu, Group Therapy, Monitor sleep, Monitor appetite Risks, benefits, side effects, alternatives discussed w/pt: Yes Patient agreeable to treatment: Yes Consult Discharge Plan - Plan Referrals: [facility] [Outside] - 02/04/17 3:30 pm (The above appointment is with Dr. Brady, for outpatient psychiatric assessment and medication management services. Please arrive 30 minutes early to complete paperwork. Please bring your photo ID and medication list. This is the first available appointment. You may contact the office regularly to check for cancellations that may allow you to be seen sooner. ) [facility] [Outside] (You are going into mental health respite at [facility] on discharge from the hospital. While there, clinic staff will open a case for you to become a client, and you will be seen daily by the clinic counselors and nurse outreach case manager, both individually and in group.)
[2017-01-20] MEDS: *HR* LORazepam 1 MG TABLET PO PRN (19:49)
[2017-01-21] MEDS: *HR* LORazepam 1 MG TABLET PO PRN ×2 (11:12→17:22)
--- NOTE | 2017-01-21 11:43 | Psychiatry Progress Note ---
Date of Encounter: 01/21/17 Time of Encounter: 11:39 Subjective Interval history: Still very symptomatic. Had to take prns last night secondary to psychosis. However, staff report some improvement after the Haldol prn. Also able to sleep all night with the increase in Seroquel. Today he reports the AH are still constant but "receding." Discussed adding Haldol to medication regimen and he agreed. Will also add low dose Cogentin to try and avoid any EPS as well. Denies active SI but reports his mood is "dreary." Looks down. According to staff, family reported he has been sleeping with a machete under his pillow since the age of 17y/o. Has likely had untreated psychosis for years so it may take him a little while to respond. Review of Systems Constitutional: Denies: fever, chills, weakness, weight change Eyes: Denies: eye pain, vision change Ears, Nose, Throat: Denies: ear pain, throat pain, dental pain, hearing loss, congestion Cardiovascular: Denies: chest pain, palpitations, dyspnea on exertion Respiratory: Denies: cough, dyspnea, wheezes Gastrointestinal: Denies: abdominal pain, nausea, vomiting, diarrhea, constipation Musculoskeletal: Denies: joint swelling, joint pain Neurological: Denies: headache, weakness, numbness, memory loss Objective: Exam Patient orientation: Yes Person, Yes Time, Yes Place Level of alertness: Alert Patient appearance: Appropriate Behavior: calm, cooperative Psychomotor activity: Normal Eye contact: Maintains Eye Contact Mood description: Depressed Affect description: congruent with mood Speech pattern: Normal rate, Normal rhythm, Normal tone Speech volume: Soft/Quiet Thought process: Thought Blocking Thought content: No Suicidal ideation, No Homicidal ideation, Yes Paranoid delusion Perceptual disturbances: Yes Auditory hallucinations, Yes Visual hallucinations Judgment: Limited Insight: Partial Results - Vital Signs Vital Signs: Temp Pulse Resp BP 98.1 F 73 16 105/56 01/21/17 09:00 01/21/17 09:00 01/21/17 09:00 01/21/17 09:00 Assessment and Plan (1) Schizophrenia, paranoid type Current visit: No Status: Acute Plan: Continue hospitalization, Close observation, Suicide Precautions per unit protocol, Encourage participation in unit milieu, Group Therapy, Monitor sleep, Monitor appetite Risks, benefits, side effects, alternatives discussed w/pt: Yes Patient agreeable to treatment: Yes Consult Discharge Plan - Plan Referrals: [facility] [Outside] - 02/04/17 3:30 pm (The above appointment is with Dr. Brady, for outpatient psychiatric assessment and medication management services. Please arrive 30 minutes early to complete paperwork. Please bring your photo ID and medication list. This is the first available appointment. You may contact the office regularly to check for cancellations that may allow you to be seen sooner. ) [facility] [Outside] (You are going into mental health respite at [facility] on discharge from the hospital. While there, clinic staff will open a case for you to become a client, and you will be seen daily by the clinic counselors and rn case mgr, both individually and in group.)
--- NOTE | 2017-01-22 11:25 | Psychiatry Progress Note ---
Date of Encounter: 01/22/17 Time of Encounter: 11:21 Subjective Interval history: Required prns twice on day shift yesterday. Still having active hallucinations. Stated today the voices got better for a little bit but are now back to where they were when he first came in. He is doing a better job of talking to staff. Initially he was reluctant to say anything but now he is more able to explain what he is experiencing and ask for help. He is showing minor improvements but he is still very sick. Sleeping through the night now but wanting prns as soon as he wakes up because the hallucinations are still there. From information that has been pieced together it sounds like he has been sick for a long time without any real intervention. May take a while for him to respond. Review of Systems Constitutional: Denies: fever, chills, weakness, weight change Eyes: Denies: eye pain, vision change Ears, Nose, Throat: Denies: ear pain, throat pain, dental pain, hearing loss, congestion Cardiovascular: Denies: chest pain, palpitations, dyspnea on exertion Respiratory: Denies: cough, dyspnea, wheezes Gastrointestinal: Denies: abdominal pain, nausea, vomiting, diarrhea, constipation Musculoskeletal: Denies: joint swelling, joint pain Neurological: Denies: headache, weakness, numbness, memory loss Objective: Exam Patient orientation: Yes Person, Yes Time, Yes Place Level of alertness: Alert Patient appearance: Appropriate Behavior: calm, cooperative Psychomotor activity: Normal Eye contact: Maintains Eye Contact Mood description: Depressed Affect description: congruent with mood Speech pattern: Normal rate, Normal rhythm, Normal tone Speech volume: Normal Thought process: Linear Thought content: No Suicidal ideation, No Homicidal ideation, Yes Paranoid delusion Perceptual disturbances: Yes Reacting to internal stimuli, Yes Auditory hallucinations, Yes Visual hallucinations Judgment: Fair Insight: Partial Results - Vital Signs Vital Signs: Temp Pulse Resp BP 97.6 F 62 14 122/68 01/21/17 21:00 01/21/17 21:00 01/21/17 21:00 01/21/17 21:00 Assessment and Plan (1) Schizophrenia, paranoid type Current visit: No Status: Acute Plan: Continue hospitalization, Close observation, Suicide Precautions per unit protocol, Encourage participation in unit milieu, Group Therapy, Monitor sleep, Monitor appetite Risks, benefits, side effects, alternatives discussed w/pt: Yes Patient agreeable to treatment: Yes Consult Discharge Plan - Plan Referrals: [facility] [Outside] - 02/04/17 3:30 pm (The above appointment is with Dr. Brady, for outpatient psychiatric assessment and medication management services. Please arrive 30 minutes early to complete paperwork. Please bring your photo ID and medication list. This is the first available appointment. You may contact the office regularly to check for cancellations that may allow you to be seen sooner. ) [facility] [Outside] (You are going into mental health respite at [facility] on discharge from the hospital. While there, clinic staff will open a case for you to become a client, and you will be seen daily by the clinic counselors and pillowcase folder, both individually and in group.)
[2017-01-22] MEDS: *HR* LORazepam 1 MG TABLET PO PRN ×2 (12:09→18:03)
[2017-01-22] MEDS: hydrOXYzine pamoate 25 MG CAPSULE PO PRN (18:03)
[2017-01-22] MEDS: Ibuprofen 400 MG TABLET PO PRN (18:03)
--- NOTE | 2017-01-23 09:28 | Psychiatry Progress Note ---
Date of Encounter: 01/23/17 Time of Encounter: 09:23 Subjective Interval history: Still having hallucinations but reports some improvement today. He is still pacing and responding to internal stimuli but possibly the meds are starting to take effect. He even smiled for the first time with this lyric writer. Mood is still down but he feels like it is improving as the voices recede. Will not change anything today and give him some more time to get better. Given Benadryl yesterday for "sore muscles." Client reports he thinks his muscles were sore from him tensing and not necessarily the medication. However, he is the right age and muscle mass to have EPS reactions. Takes scheduled Cogentin but may need a higher dose. He did not like way he felt after taking the Benadryl and wants to stick with his current Cogentin dose for now. Review of Systems Constitutional: Denies: fever, chills, weakness, weight change Eyes: Denies: eye pain, vision change Ears, Nose, Throat: Denies: ear pain, throat pain, dental pain, hearing loss, congestion Cardiovascular: Denies: chest pain, palpitations, dyspnea on exertion Respiratory: Denies: cough, dyspnea, wheezes Gastrointestinal: Denies: abdominal pain, nausea, vomiting, diarrhea, constipation Musculoskeletal: Denies: joint swelling, joint pain Neurological: Denies: headache, weakness, numbness, memory loss Objective: Exam Patient orientation: Yes Person, Yes Time, Yes Place Level of alertness: Alert Patient appearance: Appropriate Behavior: calm, cooperative Psychomotor activity: Normal Eye contact: Maintains Eye Contact Mood description: Depressed Affect description: congruent with mood Speech pattern: Normal rate, Normal rhythm, Normal tone Speech volume: Normal Thought process: Linear Thought content: No Suicidal ideation, No Homicidal ideation, Yes Paranoid delusion Perceptual disturbances: Yes Reacting to internal stimuli, Yes Auditory hallucinations, Yes Visual hallucinations Judgment: Fair Insight: Partial Results - Vital Signs Vital Signs: Temp Pulse Resp BP 98.6 F 98 16 114/74 01/22/17 21:00 01/22/17 21:00 01/22/17 21:00 01/22/17 21:00 Assessment and Plan (1) Schizophrenia, paranoid type Current visit: No Status: Acute Plan: Continue hospitalization, Close observation, Suicide Precautions per unit protocol, Encourage participation in unit milieu, Group Therapy, Monitor sleep, Monitor appetite Risks, benefits, side effects, alternatives discussed w/pt: Yes Patient agreeable to treatment: Yes Consult Discharge Plan - Plan Referrals: [facility] [Outside] - 02/04/17 3:30 pm (The above appointment is with Dr. Brady, for outpatient psychiatric assessment and medication management services. Please arrive 30 minutes early to complete paperwork. Please bring your photo ID and medication list. This is the first available appointment. You may contact the office regularly to check for cancellations that may allow you to be seen sooner. ) [facility] [Outside] (You are going into mental health respite at [facility] on discharge from the hospital. While there, clinic staff will open a case for you to become a client, and you will be seen daily by the clinic counselors and block and case maker, both individually and in group.)
[2017-01-23] MEDS: *HR* LORazepam 1 MG TABLET PO PRN (13:52)
[2017-01-23] MEDS: hydrOXYzine pamoate 25 MG CAPSULE PO PRN (17:56)
[2017-01-24] MEDS: *HR* LORazepam 1 MG TABLET PO PRN ×2 (08:57→14:49)
--- NOTE | 2017-01-24 15:50 | Psychiatry Progress Note ---
Date of Encounter: 01/24/17 Time of Encounter: 12:00 Subjective Interval history: Patient seen this morning. He was calmm cooperative and well related. He was able to engage in a long comprehensive goal directed conversation. he endorsed signifcant improvement in auditory hallucination, Denied any visual hallucination. He last head voices early this morning morning which were very faint and non command in nature. Patient denied symptoms of paranoia and no elements of delusions detected. He also reports moderate improvement in his mood. He is compliant with his medications and denied any noted sided. Reports significant improvement in muscle susan after he was placed on Cogentin. No reported behavioral issues overnight. Examination negative for any signs of EPS. Patient is sleeping and eating well. Review of Systems Constitutional: Denies: fever, chills, weakness, weight change Eyes: Denies: eye pain, vision change Ears, Nose, Throat: Denies: ear pain, throat pain, dental pain, hearing loss, congestion Cardiovascular: Denies: chest pain, palpitations, dyspnea on exertion Respiratory: Denies: cough, dyspnea, wheezes Gastrointestinal: Denies: abdominal pain, nausea, vomiting, diarrhea, constipation Musculoskeletal: Denies: back pain, joint swelling, joint pain Neurological: Denies: headache, weakness, numbness, memory loss Objective: Exam Patient orientation: Yes Person, Yes Time, Yes Place Level of alertness: Alert Patient appearance: Appropriate, Well Groomed Behavior: calm, cooperative Psychomotor activity: Normal Eye contact: Maintains Eye Contact Mood description: Euthymic/stable Affect description: congruent with mood, full range Speech pattern: Normal rate, Normal rhythm, Normal tone Speech volume: Normal Thought process: Linear, Goal Oriented Thought content: No Suicidal ideation, No Homicidal ideation, No Overt delusions Perceptual disturbances: No Auditory hallucinations, Yes Visual hallucinations Judgment: Fair Insight: Partial Results - Vital Signs Vital Signs: Temp Pulse Resp BP 98 F 105 16 99/64 01/24/17 09:00 01/24/17 09:00 01/24/17 09:00 01/24/17 09:00 Assessment and Plan (1) Schizophrenia, paranoid type Current visit: No Status: Acute Risks, benefits, side effects, alternatives discussed w/pt: Yes Patient agreeable to treatment: Yes Consult Discharge Plan - Plan Referrals: [facility] [Outside] - 02/04/17 3:30 pm (The above appointment is with Dr. Brady, for outpatient psychiatric assessment and medication management services. Please arrive 30 minutes early to complete paperwork. Please bring your photo ID and medication list. This is the first available appointment. You may contact the office regularly to check for cancellations that may allow you to be seen sooner. ) [facility] [Outside] (You are going into mental health respite at [facility] on discharge from the hospital. While there, clinic staff will open a case for you to become a client, and you will be seen daily by the clinic counselors and family service caseworker, both individually and in group.)
[2017-01-24] MEDS: Nicotine 2 MG GUM BC PRN (20:15)
[2017-01-24] MEDS: Acetaminophen 325 MG TABLET PO PRN (20:26)
[2017-01-25] MEDS: traZODone 50 MG TABLET PO PRN (00:33)
--- NOTE | 2017-01-25 14:16 | Psychiatry Progress Note ---
Date of Encounter: 01/25/17 Time of Encounter: 14:10 Subjective Interval history: Patient seen this afternoon on the office. He was calm, cooperatives and well related. He reported doing much better and denied hearing voices today. He continue to have intermittent muscle spasm from his medications. Reported an incident of tightening of his throat yesterday with resolved with p.o Cogentin. He continue to endorse visual hallucinations of multiple colors in patterns. Patient endorsed some depressive symptoms and denied siucidal ideation. Reports fron staff stated patient is isolative spending most part of his day in his room , guarded and appears paranoid when walking in the [place] [address]. He is also reported to be attending group. Though patient seem to be showing some improvement in his symptoms, his continue to have severe muscle spasm on his current regimen (haldol) necessitating the need to a switch to a diff anti psychotic. Patient agreed to switch to Zyprexa which will be started tonight with Haldol and Seroquel discontinued. Objective: Exam Patient orientation: Yes Person, Yes Time, Yes Place Level of alertness: Alert Patient appearance: Appropriate, Well Groomed Behavior: calm, cooperative Psychomotor activity: Normal Eye contact: Maintains Eye Contact Mood description: Euthymic/stable Affect description: congruent with mood, full range Speech pattern: Normal rate, Normal rhythm, Normal tone Speech volume: Normal Thought process: Linear, Goal Oriented Thought content: No Suicidal ideation, No Homicidal ideation, No Overt delusions Perceptual disturbances: Yes Auditory hallucinations, Yes Visual hallucinations Judgment: Fair Insight: Partial Results - Vital Signs Vital Signs: Temp Pulse Resp BP 97.6 F 79 16 106/65 01/25/17 09:00 01/25/17 09:00 01/25/17 09:00 01/25/17 09:00 Assessment and Plan (1) Schizophrenia, paranoid type Current visit: No Status: Acute Risks, benefits, side effects, alternatives discussed w/pt: Yes Patient agreeable to treatment: Yes Consult Discharge Plan - Plan Referrals: [facility] [Outside] - 02/04/17 3:30 pm (The above appointment is with Dr. Brady, for outpatient psychiatric assessment and medication management services. Please arrive 30 minutes early to complete paperwork. Please bring your photo ID and medication list. This is the first available appointment. You may contact the office regularly to check for cancellations that may allow you to be seen sooner. ) [facility] [Outside] (You are going into mental health respite at [facility] on discharge from the hospital. While there, clinic staff will open a case for you to become a client, and you will be seen daily by the clinic counselors and case liner, both individually and in group.)
[2017-01-25] MEDS: Nicotine 2 MG GUM BC PRN (14:56)
[2017-01-25] MEDS: *HR* LORazepam 1 MG TABLET PO PRN (17:45)
[2017-01-25] MEDS: OLANZapine 10 MG TAB.RAPDIS PO SCH (20:36)
[2017-01-25] MEDS: Acetaminophen 325 MG TABLET PO PRN (20:36)
--- NOTE | 2017-01-26 11:29 | Psychiatry Progress Note ---
Date of Encounter: 01/26/17 Time of Encounter: 11:00 Subjective Interval history: Patient seen this morning. He reported one episode of mild, non command auditory hallucination last a few seconds late last night. Denied symptoms of EPS (Dystonia) since switch from Haldol to Zyprexa. Patient endorsed visual hallucination at the time of his valuation. The last time he experienced one was yesterday. Patient reported signifcant improvement hsi symptoms. He has been observed to be more less isolated and interacting with staff and other clients. He is neither delusional nor paranoid. He agreed to start attending and participating in groups starting today. Denied any mood symptoms. He is compliant with his medications and denied any noted side effects. He denied feeling depressed or suicidal. Patient mentioned he spoke with his dad yesterday and he plans to visit him on Tuesday. Patient remains on close observation for safety. Will increase his PM dose to Zyprexa to 15mg to help optimize stabilization. Review of Systems Constitutional: Denies: fever, chills, weakness, weight change Eyes: Denies: eye pain, vision change Ears, Nose, Throat: Denies: ear pain, throat pain, dental pain, hearing loss, congestion Cardiovascular: Denies: chest pain, palpitations, dyspnea on exertion Respiratory: Denies: cough, dyspnea, wheezes Gastrointestinal: Denies: abdominal pain, nausea, vomiting, diarrhea, constipation Musculoskeletal: Denies: joint swelling, joint pain Neurological: Denies: headache, weakness, numbness, memory loss Objective: Exam Patient orientation: Yes Person, Yes Time, Yes Place Level of alertness: Alert Patient appearance: Appropriate, Well Groomed Behavior: calm, cooperative Psychomotor activity: Normal Eye contact: Maintains Eye Contact Mood description: Euthymic/stable Affect description: congruent with mood, full range Speech pattern: Normal rate, Normal rhythm, Normal tone Speech volume: Normal Thought process: Linear, Goal Oriented Thought content: No Suicidal ideation, No Homicidal ideation, No Overt delusions Perceptual disturbances: Yes Auditory hallucinations, Yes Visual hallucinations Judgment: Fair Insight: Partial Results - Vital Signs Vital Signs: Temp Pulse Resp BP 97.4 F L 76 16 109/68 01/26/17 09:00 01/26/17 09:00 01/26/17 09:00 01/26/17 09:00 Assessment and Plan (1) Schizophrenia, paranoid type Current visit: No Status: Acute Risks, benefits, side effects, alternatives discussed w/pt: Yes Patient agreeable to treatment: Yes Consult Discharge Plan - Plan Referrals: [facility] [Outside] - 02/04/17 3:30 pm (The above appointment is with Dr. Brady, for outpatient psychiatric assessment and medication management services. Please arrive 30 minutes early to complete paperwork. Please bring your photo ID and medication list. This is the first available appointment. You may contact the office regularly to check for cancellations that may allow you to be seen sooner. ) [facility] [Outside] (You are going into mental health respite at [facility] on discharge from the hospital. While there, clinic staff will open a case for you to become a client, and you will be seen daily by the clinic counselors and trimming caser, both individually and in group.)
[2017-01-26] MEDS: *HR* LORazepam 1 MG TABLET PO PRN (12:47)
[2017-01-26] MEDS ORDERED: *HR* LORazepam 1 MG TABLET PO ONE (16:02)
[2017-01-26] MEDS: Nicotine 2 MG GUM BC PRN (17:03)
[2017-01-26] MEDS: OLANZapine 10 MG TAB.RAPDIS PO SCH (21:08)
[2017-01-27] MEDS: OLANZapine 5 MG TAB.RAPDIS PO SCH (11:10)
--- NOTE | 2017-01-27 13:46 | Psychiatry Progress Note ---
Date of Encounter: 01/27/17 Time of Encounter: 13:30 Subjective Interval history: Patient continue to show improvement in symptoms. He is responding better with Zyprexa and denied any side effects. He was seen this mrgeeta with a much brighter affect. He reported waking up this morning in a happy mood. Denied hearing voices or seeing things since yesterday in the afternoon. Patient requested for PRN meds for AH twice in the afternoon yesterday. Patient is interacting with other patient and attended groups yesterday. Will continue with Zyprexa 15mg at bedtime and 5mg Am. Review of Systems Constitutional: Denies: fever, chills, weakness, weight change Eyes: Denies: eye pain, vision change Ears, Nose, Throat: Denies: ear pain, throat pain, dental pain, hearing loss, congestion Cardiovascular: Denies: chest pain, palpitations, dyspnea on exertion Respiratory: Denies: cough, dyspnea, wheezes Gastrointestinal: Denies: abdominal pain, nausea, vomiting, diarrhea, constipation Musculoskeletal: Denies: joint swelling, joint pain Neurological: Denies: headache, weakness, numbness, memory loss Objective: Exam Patient orientation: Yes Person, Yes Time, Yes Place Level of alertness: Alert Patient appearance: Appropriate, Well Groomed Behavior: calm, cooperative Psychomotor activity: Normal Eye contact: Maintains Eye Contact Mood description: Euthymic/stable Affect description: congruent with mood, full range Speech pattern: Normal rate, Normal rhythm, Normal tone Speech volume: Normal Thought process: Linear, Goal Oriented Thought content: No Suicidal ideation, No Homicidal ideation, No Overt delusions Perceptual disturbances: No Auditory hallucinations, No Visual hallucinations Judgment: Fair Insight: Partial Results - Vital Signs Vital Signs: Temp Pulse Resp BP 98.4 F 74 14 112/69 01/27/17 09:00 01/27/17 09:00 01/27/17 09:00 01/27/17 09:00 Assessment and Plan (1) Schizophrenia, paranoid type Current visit: No Status: Acute Risks, benefits, side effects, alternatives discussed w/pt: Yes Patient agreeable to treatment: Yes Consult Discharge Plan - Plan Referrals: [facility] [Outside] - 02/04/17 3:30 pm (The above appointment is with Dr. Brady, for outpatient psychiatric assessment and medication management services. Please arrive 30 minutes early to complete paperwork. Please bring your photo ID and medication list. This is the first available appointment. You may contact the office regularly to check for cancellations that may allow you to be seen sooner. ) [facility] [Outside] (You are going into mental health respite at [facility] on discharge from the hospital. While there, clinic staff will open a case for you to become a client, and you will be seen daily by the clinic counselors and case assistant, both individually and in group.)
[2017-01-27] MEDS: Nicotine 2 MG GUM BC PRN (15:15)
[2017-01-27] MEDS: *HR* LORazepam 1 MG TABLET PO PRN (18:41)
[2017-01-27] MEDS ORDERED: OLANZapine 10 MG TAB.RAPDIS PO SCH (21:00)
[2017-01-27] MEDS: traZODone 50 MG TABLET PO PRN (23:58)
[2017-01-28] MEDS ORDERED: OLANZapine 5 MG TAB.RAPDIS PO SCH (09:00)
[2017-01-28] MEDS: OLANZapine 5 MG TAB.RAPDIS PO SCH (09:40)
--- NOTE | 2017-01-28 13:54 | Psychiatry Progress Note ---
Date of Encounter: 01/28/17 Time of Encounter: 13:00 Subjective Interval history: Patient seen and evaluated on rounds by a multidisciplinary treatment team. He reported was requested prn medications twice yesterday in the evening for AH. Patient continue to do well on his medications with significant improvement in the frequency and intensity of AH. He is not yet at baseline. He continue show improvement in his affect, interactions with other clients and hsi attendance in group sessions. Patient is compliant with his medications and denied any noted side effects. Patient initally requested for discharge but agreed to stay on for additional stabilization to help decrease his risk to relapse and subsequent rehospitalization. He is sleeping and eating well. on review of symptoms, patient denied other mood or psychotic symptoms including paranoia, VH /SI/HI. Review of Systems Constitutional: Denies: fever, chills, weakness, weight change Eyes: Denies: eye pain, vision change Ears, Nose, Throat: Denies: ear pain, throat pain, dental pain, hearing loss, congestion Cardiovascular: Denies: chest pain, palpitations, dyspnea on exertion Respiratory: Denies: cough, dyspnea, wheezes Gastrointestinal: Denies: abdominal pain, nausea, vomiting, diarrhea, constipation Musculoskeletal: Denies: joint swelling, joint pain Neurological: Denies: headache, weakness, numbness, memory loss Objective: Exam Patient orientation: Yes Person, Yes Time, Yes Place Level of alertness: Alert Patient appearance: Appropriate, Well Groomed Behavior: calm, cooperative Psychomotor activity: Normal Eye contact: Maintains Eye Contact Mood description: Euthymic/stable Affect description: congruent with mood, full range Speech pattern: Normal rate, Normal rhythm, Normal tone Speech volume: Normal Thought process: Linear, Goal Oriented Thought content: No Suicidal ideation, No Homicidal ideation, No Overt delusions Perceptual disturbances: Yes Auditory hallucinations, No Visual hallucinations Judgment: Fair Insight: Partial Results - Vital Signs Vital Signs: Temp Pulse Resp BP 98 F 68 14 116/68 01/28/17 09:00 01/28/17 09:00 01/28/17 09:00 01/28/17 09:00 Assessment and Plan (1) Schizophrenia, paranoid type Current visit: No Status: Acute Risks, benefits, side effects, alternatives discussed w/pt: Yes Patient agreeable to treatment: Yes Consult Discharge Plan - Plan Referrals: [facility] [Outside] - 02/04/17 3:30 pm (The above appointment is with Dr. Brady, for outpatient psychiatric assessment and medication management services. Please arrive 30 minutes early to complete paperwork. Please bring your photo ID and medication list. This is the first available appointment. You may contact the office regularly to check for cancellations that may allow you to be seen sooner. ) [facility] [Outside] (You are going into mental health respite at [facility] on discharge from the hospital. While there, clinic staff will open a case for you to become a client, and you will be seen daily by the clinic counselors and lining caser, both individually and in group.)
[2017-01-28] MEDS: OLANZapine 10 MG TAB.RAPDIS PO SCH (21:49)
[2017-01-28] MEDS: traZODone 50 MG TABLET PO PRN (21:49)
[2017-01-29] MEDS: OLANZapine 5 MG TAB.RAPDIS PO SCH (09:50)
--- NOTE | 2017-01-29 13:06 | Psychiatry Progress Note ---
Date of Encounter: 01/29/17 Time of Encounter: 12:33 Subjective Interval history: Patient seen and interviewed. History and physical examination reviewed. Patient is continued to do well and is making progress. Still reporting some scattered auditory hallucinations off and on but less bothered by them. Patient is endorsing some anxiety and nervousness. Paranoia has subsided. Behavior is controlled and compliant. I discuss the discharge and the disposition plan patient is a fear that he will be going to [facility] on Tuesday and is okay with this plan. Review of Systems Psychiatric: Reports: auditory hallucinations Objective: Exam Patient orientation: Yes Person, Yes Time, Yes Place Level of alertness: Alert Patient appearance: Appropriate, Well Groomed Behavior: calm, cooperative Psychomotor activity: Normal Eye contact: Maintains Eye Contact Mood description: Anxious Affect description: blunted Speech pattern: Normal rate, Normal rhythm, Normal tone Speech volume: Normal Thought process: Linear, Goal Oriented Thought content: No Suicidal ideation, No Homicidal ideation, No Overt delusions Perceptual disturbances: Yes Auditory hallucinations, No Visual hallucinations Judgment: Fair Insight: Partial Results - Vital Signs Vital Signs: Temp Pulse Resp BP 98 F 78 16 110/75 01/29/17 08:30 01/29/17 08:30 01/29/17 08:30 01/29/17 08:30 Assessment and Plan (1) Schizophrenia, paranoid type Current visit: No Status: Acute Plan: Continue hospitalization, Close observation, Suicide Precautions per unit protocol, Encourage participation in unit milieu, Group Therapy, Monitor sleep, Monitor appetite Additional Plan: Continue with current medications. Possible discharge to [facility] on Tuesday Risks, benefits, side effects, alternatives discussed w/pt: Yes Patient agreeable to treatment: Yes Consult Discharge Plan - Plan Referrals: [facility] [Outside] - 02/04/17 3:30 pm (The above appointment is with Dr. Brady, for outpatient psychiatric assessment and medication management services. Please arrive 30 minutes early to complete paperwork. Please bring your photo ID and medication list. This is the first available appointment. You may contact the office regularly to check for cancellations that may allow you to be seen sooner. ) [facility] [Outside] (You are going into mental health respite at [facility] on discharge from the hospital. While there, clinic staff will open a case for you to become a client, and you will be seen daily by the clinic counselors and classification case manager, both individually and in group.)
[2017-01-29] MEDS: hydrOXYzine pamoate 25 MG CAPSULE PO PRN ×2 (13:23→17:10)
[2017-01-29] MEDS: Nicotine 2 MG GUM BC PRN (18:32)
[2017-01-29] MEDS: Acetaminophen 325 MG TABLET PO PRN (18:32)
[2017-01-29] MEDS: OLANZapine 10 MG TAB.RAPDIS PO SCH (22:23)
[2017-01-29] MEDS: traZODone 50 MG TABLET PO PRN (22:23)
[2017-01-30] MEDS: OLANZapine 5 MG TAB.RAPDIS PO SCH (09:52)
[2017-01-30] MEDS: hydrOXYzine pamoate 25 MG CAPSULE PO PRN ×3 (12:08→21:58)
--- NOTE | 2017-01-30 12:27 | Psychiatry Progress Note ---
Date of Encounter: 01/30/17 Time of Encounter: 11:47 Subjective Interval history: Patient seen and interviewed making progress. Still endorsing auditory hallucination but is less bothered by them. It has been observed that patient started to have difficulties around midafternoon with anxiety and increase in voices. We discussed option of rescheduling her Zyprexa to 5 mg in the morning 5 mg in the afternoon and 20 mg at bedtime to address his midafternoon order to hallucinations and anxiety. Patient is agreeable with this plan. Patient is denying suicidal homicidal ideations. Patient is reporting that despite the auditory hallucinations he is able to ignore and dismissed them and not bothered by them. Patient has been spending more time in his room and is encouraged to participate in unit activities. He is tolerating medications fairly well did not report any side effects. Review of Systems Psychiatric: Reports: anxiety, auditory hallucinations Objective: Exam Patient orientation: Yes Person, Yes Time, Yes Place Level of alertness: Alert Patient appearance: Appropriate, Well Groomed Behavior: anxious Psychomotor activity: Normal Eye contact: Maintains Eye Contact Mood description: Anxious Affect description: congruent with mood Speech pattern: Normal rate, Normal rhythm, Normal tone Speech volume: Normal Thought process: Linear, Goal Oriented Thought content: No Suicidal ideation, No Homicidal ideation, No Overt delusions Perceptual disturbances: Yes Auditory hallucinations Judgment: Fair Insight: Partial Results - Vital Signs Vital Signs: Temp Pulse Resp BP 98.6 F 84 16 110/70 01/30/17 09:00 01/30/17 09:00 01/30/17 09:00 01/30/17 09:00 Assessment and Plan (1) Schizophrenia, paranoid type Current visit: No Status: Acute Plan: Continue hospitalization, Close observation, Suicide Precautions per unit protocol, Encourage participation in unit milieu, Group Therapy, Monitor sleep, Monitor appetite Additional Plan: We will change the frequency of Zyprexa to 5 mg in the morning 5 mg in the afternoon and will continue 20 mg at bedtime Risks, benefits, side effects, alternatives discussed w/pt: Yes Patient agreeable to treatment: Yes Consult Discharge Plan - Plan Referrals: [facility] [Outside] - 02/04/17 3:30 pm (The above appointment is with Dr. Brady, for outpatient psychiatric assessment and medication management services. Please arrive 30 minutes early to complete paperwork. Please bring your photo ID and medication list. This is the first available appointment. You may contact the office regularly to check for cancellations that may allow you to be seen sooner. ) [facility] [Outside] (You are going into mental health respite at [facility] on discharge from the hospital. While there, clinic staff will open a case for you to become a client, and you will be seen daily by the clinic counselors and case hardener, both individually and in group.)
[2017-01-30] MEDS ORDERED: OLANZapine 5 MG TAB.RAPDIS PO ONE (13:00)
[2017-01-30] MEDS: OLANZapine 10 MG TAB.RAPDIS PO SCH (21:58)
[2017-01-30] MEDS: traZODone 50 MG TABLET PO PRN (21:58)
[2017-01-31] MEDS: OLANZapine 5 MG TAB.RAPDIS PO SCH ×2 (09:18→12:37)
[2017-01-31] MEDS: hydrOXYzine pamoate 25 MG CAPSULE PO PRN (11:34)
[2017-01-31] MEDS: *HR* LORazepam 1 MG TABLET PO PRN (13:49)
--- NOTE | 2017-01-31 16:54 | Psychiatry Progress Note ---
Date of Encounter: 01/31/17 Time of Encounter: 14:00 Subjective Interval history: Patient seen today , case discussed with staff and pt has been getting prn meds daily and his voices are not much improved, he has been anxious , having panic attacks and now as per him getting depressed as voices are not going away. he is attending some groups, he has been distracted while in session , he denies suicidal ideation. he is having racing thoughts, pt on olanzapine 30 mg and not much improvement, will add Depakote and slowly taper up and make hydroxyzine tid and not prn. pt agreed with plan , denies any side effects. Review of Systems Psychiatric: Reports: anxiety, auditory hallucinations Objective: Exam Level of alertness: Alert Patient appearance: Appropriate Behavior: nervous, anxious Psychomotor activity: Normal Eye contact: Maintains Eye Contact Mood description: Depressed, Anxious Affect description: constricted Speech pattern: Slowed Speech volume: Normal Thought process: [place] Thought content: Yes Preoccupation, Yes Paranoid delusion Perceptual disturbances: Yes Auditory hallucinations, Yes Visual hallucinations Judgment: Limited Insight: Partial Results - Vital Signs Vital Signs: Temp Pulse Resp BP 98 F 85 18 124/72 01/31/17 08:55 01/31/17 08:55 01/31/17 08:55 01/31/17 08:55 Assessment and Plan (1) Schizophrenia, paranoid type Current visit: No Status: Acute Plan: Continue hospitalization Risks, benefits, side effects, alternatives discussed w/pt: Yes Patient agreeable to treatment: Yes Consult Discharge Plan - Plan Referrals: [facility] [Outside] - 02/04/17 3:30 pm (The above appointment is with Dr. Brady, for outpatient psychiatric assessment and medication management services. Please arrive 30 minutes early to complete paperwork. Please bring your photo ID and medication list. This is the first available appointment. You may contact the office regularly to check for cancellations that may allow you to be seen sooner. ) [facility] [Outside] (You are going into mental health respite at [facility] on discharge from the hospital. While there, clinic staff will open a case for you to become a client, and you will be seen daily by the clinic counselors and correctional case records supervisor, both individually and in group.)
[2017-01-31] MEDS: Divalproex (12 HR) 250 MG TABLET PO SCH ×2 (17:15→20:51)
[2017-01-31] MEDS: hydrOXYzine pamoate 25 MG CAPSULE PO SCH (20:51)
[2017-01-31] MEDS: traZODone 50 MG TABLET PO PRN (20:51)
[2017-01-31] MEDS: OLANZapine 10 MG TAB.RAPDIS PO SCH (20:51)
[2017-02-01] MEDS: Acetaminophen 325 MG TABLET PO PRN (00:58)
[2017-02-01] MEDS: hydrOXYzine pamoate 25 MG CAPSULE PO SCH ×3 (09:43→21:24)
[2017-02-01] MEDS: Divalproex (12 HR) 250 MG TABLET PO SCH (09:44)
[2017-02-01] MEDS: OLANZapine 5 MG TAB.RAPDIS PO SCH ×2 (09:48→13:44)
--- NOTE | 2017-02-01 09:53 | Psychiatry Progress Note ---
Date of Encounter: 02/01/17 Time of Encounter: 09:35 Subjective Interval history: Patient seen today , case discussed in Multidiciplinary team , as per staff he is still having psychosis and had multiple prn secondary to increase anxiety, pacing and auditory hallucinations. Today in session he was having minimal eye contact, anxious , states voices are there but with new medicine he had less intense. this morning he is still having auditory Hallucinations, at times commanding telling him to hurt self and mostly telling him mean stuffand hateful things as per him. pt also isolative not eating well,admits feels down and wants voices to go away , he has some paranoia. meds changes done , will increase Depakote and monitor closely . Review of Systems Psychiatric: Reports: anxiety, suicidal ideation, auditory hallucinations, difficulty concentrating, panic attacks Objective: Exam Patient orientation: Yes Time Level of alertness: Alert Patient appearance: Appropriate Behavior: nervous, anxious, restless Psychomotor activity: Slowed Eye contact: Minimal Contact Mood description: Depressed, Anxious Affect description: constricted Speech pattern: Slowed Speech volume: Soft/Quiet Thought process: Slowed Thinking Thought content: Yes Suicidal ideation Perceptual disturbances: Yes Auditory hallucinations Judgment: Limited Insight: Partial Results - Vital Signs Vital Signs: Temp Pulse Resp BP 97.6 F 93 18 121/81 01/31/17 20:47 01/31/17 20:47 01/31/17 20:47 01/31/17 20:47 Assessment and Plan (1) Schizophrenia, paranoid type Current visit: No Status: Acute Risks, benefits, side effects, alternatives discussed w/pt: Yes Patient agreeable to treatment: Yes Consult Discharge Plan - Plan Referrals: [facility] [Outside] - 02/04/17 3:30 pm (The above appointment is with Dr. Brady, for outpatient psychiatric assessment and medication management services. Please arrive 30 minutes early to complete paperwork. Please bring your photo ID and medication list. This is the first available appointment. You may contact the office regularly to check for cancellations that may allow you to be seen sooner. ) [facility] [Outside] (You are going into mental health respite at [facility] on discharge from the hospital. While there, clinic staff will open a case for you to become a client, and you will be seen daily by the clinic counselors and rifle case repairer, both individually and in group.)
[2017-02-01] MEDS: Divalproex (12 HR) 500 MG TABLET PO SCH (21:24)
[2017-02-01] MEDS: OLANZapine 10 MG TAB.RAPDIS PO SCH (21:24)
[2017-02-01] MEDS: traZODone 50 MG TABLET PO SCH (21:24)
[2017-02-02] MEDS: Divalproex (12 HR) 500 MG TABLET PO SCH ×2 (09:30→21:44)
[2017-02-02] MEDS: hydrOXYzine pamoate 25 MG CAPSULE PO SCH ×3 (09:31→21:45)
[2017-02-02] MEDS: traZODone 50 MG TABLET PO SCH ×2 (09:35→21:45)
[2017-02-02] MEDS: OLANZapine 5 MG TAB.RAPDIS PO SCH ×2 (09:35→12:02)
[2017-02-02] MEDS: Acetaminophen 325 MG TABLET PO PRN (11:03)
--- NOTE | 2017-02-02 14:13 | Psychiatry Progress Note ---
Date of Encounter: 02/02/17 Time of Encounter: 14:10 Subjective Interval history: Patient seen today states feels medicine helping as voices intensity is not that bad and also as per staff he has not been pacing and only two times prn medications needed. still has significant anxiety and psychosis with blunt affect. no suicidal , but has commanding hallucinations. Review of Systems Psychiatric: Reports: anxiety, auditory hallucinations, hopelessness Objective: Exam Level of alertness: Alert Patient appearance: Appropriate Behavior: anxious, withdrawn Psychomotor activity: Slowed Eye contact: Minimal Contact Mood description: Anxious Affect description: blunted Speech pattern: Slowed Speech volume: Soft/Quiet Thought process: Thought Blocking Thought content: Yes Preoccupation Perceptual disturbances: Yes Auditory hallucinations, Yes Visual hallucinations Judgment: Limited Insight: Minimal Results - Vital Signs Vital Signs: Temp Pulse Resp BP 98 F 84 16 117/77 02/02/17 09:00 02/02/17 09:00 02/02/17 09:00 02/02/17 09:00 Assessment and Plan (1) Schizophrenia, paranoid type Current visit: No Status: Acute Risks, benefits, side effects, alternatives discussed w/pt: Yes Patient agreeable to treatment: Yes Consult Discharge Plan - Plan Referrals: [facility] [Outside] - 02/04/17 3:30 pm (The above appointment is with Dr. Brady, for outpatient psychiatric assessment and medication management services. Please arrive 30 minutes early to complete paperwork. Please bring your photo ID and medication list. This is the first available appointment. You may contact the office regularly to check for cancellations that may allow you to be seen sooner. ) [facility] [Outside] (You are going into mental health respite at [facility] on discharge from the hospital. While there, clinic staff will open a case for you to become a client, and you will be seen daily by the clinic counselors and case coordinator, both individually and in group.)
[2017-02-02] MEDS: OLANZapine 10 MG TAB.RAPDIS PO SCH (21:45)
[2017-02-03] MEDS: traZODone 50 MG TABLET PO PRN (00:27)
[2017-02-03] MEDS: traZODone 50 MG TABLET PO SCH (09:02)
[2017-02-03] MEDS: hydrOXYzine pamoate 25 MG CAPSULE PO SCH ×3 (09:02→21:24)
[2017-02-03] MEDS: Divalproex (12 HR) 500 MG TABLET PO SCH ×2 (09:02→21:26)
[2017-02-03] MEDS: OLANZapine 5 MG TAB.RAPDIS PO SCH ×2 (09:05→12:09)
--- NOTE | 2017-02-03 13:08 | Psychiatry Progress Note ---
Date of Encounter: 02/03/17 Time of Encounter: 09:55 Subjective Interval history: Patient seen today ,case discussed with team , slow improvement , lesser prn meds, auditory hallucinations frequency anf intensity less, less pacing and no EPS. AIMS 0 pt is having blunt affect and isolative , is attending groups and somewhat interactive. off and on commanding hallucinations and suicidal thoughts off and on. Review of Systems Psychiatric: Reports: anxiety, suicidal ideation, auditory hallucinations, hopelessness Objective: Exam Patient orientation: Yes Time, Yes Place Level of alertness: Alert Patient appearance: Appropriate Behavior: withdrawn Psychomotor activity: Slowed Eye contact: Minimal Contact Mood description: Anxious Affect description: blunted Speech pattern: Slowed Speech volume: Soft/Quiet Thought process: Slowed Thinking Thought content: Yes Suicidal ideation, Yes Nihilistic delusion Perceptual disturbances: Yes Auditory hallucinations Judgment: Limited Insight: Minimal Results - Vital Signs Vital Signs: Temp Pulse Resp BP 97.8 F 94 16 96/60 02/03/17 09:00 02/03/17 09:00 02/03/17 09:00 02/03/17 09:00 Assessment and Plan (1) Schizophrenia, paranoid type Current visit: No Status: Acute Risks, benefits, side effects, alternatives discussed w/pt: Yes Patient agreeable to treatment: Yes Consult Discharge Plan - Plan Referrals: [facility] [Outside] - 02/04/17 3:30 pm (The above appointment is with Dr. Brady, for outpatient psychiatric assessment and medication management services. Please arrive 30 minutes early to complete paperwork. Please bring your photo ID and medication list. This is the first available appointment. You may contact the office regularly to check for cancellations that may allow you to be seen sooner. ) [facility] [Outside] (You are going into mental health respite at [facility] on discharge from the hospital. While there, clinic staff will open a case for you to become a client, and you will be seen daily by the clinic counselors and case picker, both individually and in group.)
[2017-02-03] MEDS: OLANZapine 10 MG TAB.RAPDIS PO SCH (21:26)
[2017-02-04] MEDS: Divalproex (12 HR) 500 MG TABLET PO SCH ×3 (09:12→20:33)
[2017-02-04] MEDS: hydrOXYzine pamoate 25 MG CAPSULE PO SCH ×3 (09:12→20:33)
[2017-02-04] MEDS: OLANZapine 5 MG TAB.RAPDIS PO SCH ×2 (09:12→12:58)
--- NOTE | 2017-02-04 10:07 | Psychiatry Progress Note ---
Date of Encounter: 02/04/17 Time of Encounter: 09:55 Subjective Interval history: Patient seen today , case discussed with Treatment team and as per staff less prn meds and slept 6 hrs. As per Mr. Braga he is sleeping better, anxiety is getting in control and voices are not that intense but still there and commanding at times and doesnot feel safe. he is still psychotic, commanding hallucinations and paranoia and suicidal thoughts off and on , he has shown some improvement with depakote and hydroxyzine . will check his Depakote level as it is pending. he denies any side effects. patient is still danger to self/others. PLAN will step down to residential inpatient as per plan of treatment team , will continue close monitoring and encouage to attend groups. Review of Systems Psychiatric: Reports: anxiety, suicidal ideation, auditory hallucinations, difficulty concentrating, hopelessness Objective: Exam Patient orientation: Yes Time Level of alertness: Alert Patient appearance: Appropriate Behavior: anxious, withdrawn Psychomotor activity: Slowed Eye contact: Minimal Contact Mood description: Anxious Affect description: blunted Speech pattern: Delayed Speech volume: Soft/Quiet Thought process: [place], Slowed Thinking Thought content: Yes Preoccupation, Yes Paranoid delusion Perceptual disturbances: Yes Auditory hallucinations Judgment: Limited Insight: Minimal Results - Vital Signs Vital Signs: Temp Pulse Resp BP 98 F 101 16 118/80 02/04/17 09:00 02/04/17 09:00 02/04/17 09:00 02/04/17 09:00 Assessment and Plan (1) Schizophrenia, paranoid type Current visit: No Status: Acute Risks, benefits, side effects, alternatives discussed w/pt: Yes Patient agreeable to treatment: Yes Consult Discharge Plan - Plan Referrals: [facility] [Outside] - 02/08/17 3:30 pm (The above appointment is with Susan Koehler, for outpatient psychiatric assessment and medication management services. Please arrive 30 minutes early to complete paperwork. Please bring your photo ID and medication list. This is the first available appointment. You may contact the office regularly to check for cancellations that may allow you to be seen sooner. ) [facility] [Outside] (You are going into mental health respite at [facility] on discharge from the hospital. While there, clinic staff will open a case for you to become a client, and you will be seen daily by the clinic counselors and showcase trimmer, both individually and in group.)
--- NOTE | 2017-02-04 11:18 | Psychiatry Progress Note ---
Date of Encounter: 02/04/17 Review of Systems Psychiatric: Reports: anxiety, suicidal ideation, auditory hallucinations, difficulty concentrating, hopelessness Results - Vital Signs Vital Signs: Temp Pulse Resp BP 98 F 101 16 118/80 02/04/17 09:00 02/04/17 09:00 02/04/17 09:00 02/04/17 09:00 - Labs Labs: Laboratory Results - last 24 hr 02/04/17 07:44 Valproic Acid 41.34 L Assessment and Plan (1) Schizophrenia, paranoid type Current visit: No Status: Acute Risks, benefits, side effects, alternatives discussed w/pt: Yes Patient agreeable to treatment: Yes Consult Discharge Plan - Plan Referrals: [facility] [Outside] - 02/08/17 3:30 pm (The above appointment is with Susan Koehler, for outpatient psychiatric assessment and medication management services. Please arrive 30 minutes early to complete paperwork. Please bring your photo ID and medication list. This is the first available appointment. You may contact the office regularly to check for cancellations that may allow you to be seen sooner. ) [facility] [Outside] (You are going into mental health respite at [facility] on discharge from the hospital. While there, clinic staff will open a case for you to become a client, and you will be seen daily by the clinic counselors and pillowcase maker, both individually and in group.)
[2017-02-04] MEDS: OLANZapine 10 MG TAB.RAPDIS PO SCH (20:33)
[2017-02-04] MEDS: traZODone 50 MG TABLET PO PRN (23:39)
[2017-02-05] MEDS: hydrOXYzine pamoate 25 MG CAPSULE PO SCH ×3 (09:07→20:34)
[2017-02-05] MEDS: Divalproex (12 HR) 500 MG TABLET PO SCH ×3 (09:08→20:34)
--- NOTE | 2017-02-05 10:42 | Psychiatry Progress Note ---
Date of Encounter: 02/05/17 Time of Encounter: 10:00 Subjective Interval history: Patient seen today , he had some tightness oF CHEST , which as per notes has complained before but goes away with anti anxiety meds this time was not going and EKG was done and reviewed by Dr Adams and he requested troponin level 3 x , his troponin was normal first time. at present no chest tightness , slepp better last night, aud. hallucinations are much better and anxiety still there. he was informed of his results. will decrease zyprexa to 20 mg po hs and continue close monitoring. Review of Systems Psychiatric: Reports: anxiety, auditory hallucinations, difficulty concentrating Objective: Exam Patient orientation: Yes Person, Yes Time, Yes Place Level of alertness: Alert Patient appearance: Appropriate Behavior: calm, cooperative Psychomotor activity: Slowed Eye contact: Maintains Eye Contact Mood description: Anxious Affect description: congruent with mood Speech pattern: Slowed Speech volume: Normal Thought process: Slowed Thinking Thought content: Yes Paranoid delusion Perceptual disturbances: Yes Auditory hallucinations Judgment: Fair Insight: Partial Results - Vital Signs Vital Signs: Temp Pulse Resp BP 97.6 F 81 18 110/76 02/05/17 09:00 02/05/17 09:00 02/05/17 09:00 02/05/17 09:00 - Labs Labs: Laboratory Results - last 24 hr 02/04/17 02/05/17 07:44 07:57 Troponin I 0.01 Valproic Acid 41.34 L Assessment and Plan (1) Schizophrenia, paranoid type Current visit: No Status: Acute Risks, benefits, side effects, alternatives discussed w/pt: Yes Patient agreeable to treatment: Yes Consult Discharge Plan - Plan Referrals: [facility] [Outside] - 02/08/17 3:30 pm (The above appointment is with Susan Koehler, for outpatient psychiatric assessment and medication management services. Please arrive 30 minutes early to complete paperwork. Please bring your photo ID and medication list. This is the first available appointment. You may contact the office regularly to check for cancellations that may allow you to be seen sooner. ) [facility] [Outside] (You are going into mental health respite at [facility] on discharge from the hospital. While there, clinic staff will open a case for you to become a client, and you will be seen daily by the clinic counselors and manager of case, both individually and in group.)
[2017-02-05] MEDS: OLANZapine 10 MG TAB.RAPDIS PO SCH (20:34)
[2017-02-06] MEDS: hydrOXYzine pamoate 25 MG CAPSULE PO SCH ×3 (08:58→20:22)
[2017-02-06] MEDS: Divalproex (12 HR) 500 MG TABLET PO SCH ×3 (08:58→23:00)
--- NOTE | 2017-02-06 12:47 | Psychiatry Progress Note ---
Date of Encounter: 02/06/17 Time of Encounter: 12:46 Subjective Interval history: PAtient seen today , case discussed with alin, states showing improvement, moods better, sleep is improved, auditory hallucinations are much decreased and not commanding today , paranoia low . patient is overall showing improvement . denies side effects. voices have not increased with decreasing dose of zyprexa. denies any chest tightness. Review of Systems Psychiatric: Reports: anxiety, auditory hallucinations, difficulty concentrating Objective: Exam Patient orientation: Yes Person, Yes Time, Yes Place Level of alertness: Alert Patient appearance: Appropriate Behavior: cooperative Psychomotor activity: Slowed Eye contact: Minimal Contact Mood description: Anxious Affect description: blunted Speech pattern: Slowed Speech volume: Soft/Quiet Thought process: Slowed Thinking Thought content: Yes Paranoid delusion Perceptual disturbances: Yes Auditory hallucinations Judgment: Fair Insight: Partial Results - Vital Signs Vital Signs: Temp Pulse Resp BP 97.8 F 81 16 99/66 02/06/17 09:00 02/06/17 09:00 02/06/17 09:00 02/06/17 09:00 - Labs Labs: Laboratory Results - last 24 hr 02/05/17 02/05/17 02/06/17 13:15 19:34 07:36 Troponin I 0.00 0.00 Valproic Acid 90.19 Assessment and Plan (1) Schizophrenia, paranoid type Current visit: No Status: Acute Risks, benefits, side effects, alternatives discussed w/pt: Yes Patient agreeable to treatment: Yes Consult Discharge Plan - Plan Referrals: [facility] [Outside] - 02/08/17 3:30 pm (The above appointment is with Susan Koehler, for outpatient psychiatric assessment and medication management services. Please arrive 30 minutes early to complete paperwork. Please bring your photo ID and medication list. This is the first available appointment. You may contact the office regularly to check for cancellations that may allow you to be seen sooner. ) [facility] [Outside] (You are going into mental health respite at [facility] on discharge from the hospital. While there, clinic staff will open a case for you to become a client, and you will be seen daily by the clinic counselors and manager case, both individually and in group.)
--- NOTE | 2017-02-06 18:44 | Electrocardiograph Report ---
[address] [place], [place] [address] Test Date: 2017-02-05 Pat Name: Omi Aguila Department: 101 Room: 1A45 Gender: M Warper Fixer: MARIA C : 1995 Requested By: Zeke Murphy Order Number: [id number] Reading MD: Keanu Arrieta MD Measurements Intervals [place] Rate: 79 P: 62 [place]: 143 QRS: 48 QRSD: 85 T: 39 QT: 383 QTc: 418 Interpretive Statements SINUS RHYTHM Electronically Signed On 02-06-2017 18:42:50 EDT by Keanu Arrieta MD
[2017-02-06] MEDS: OLANZapine 10 MG TAB.RAPDIS PO SCH (20:21)
[2017-02-06] MEDS: traZODone 50 MG TABLET PO PRN (20:23)
[2017-02-06] MEDS: Nicotine 2 MG GUM BC PRN (20:23)
[2017-02-06] MEDS: Acetaminophen 325 MG TABLET PO PRN (20:23)
[2017-02-07] MEDS: Divalproex (12 HR) 500 MG TABLET PO SCH ×3 (09:30→20:57)
[2017-02-07] MEDS: hydrOXYzine pamoate 25 MG CAPSULE PO SCH ×3 (09:31→20:57)
--- NOTE | 2017-02-07 15:05 | Psychiatry Progress Note ---
Date of Encounter: 02/07/17 Time of Encounter: 11:15 Subjective Interval history: Patient is seen today for follow-up of his psychosis. Treatment plan reviewed and previous notes reviewed. Patient reports medications are helping and are decreasing auditory hallucinations. They are not bothersome to him at this time. He is interested in discharge planning over the next couple of days. He reports he is sleeping well. He is still pacing the hallways some but states that this is his "exercise." He is willing to follow-up and take meds as prescribed outside the hospital. He denies suicidal ideations. Review of Systems Constitutional: Denies: fever, chills, weakness, weight change Eyes: Denies: eye pain, vision change Ears, Nose, Throat: Denies: ear pain, throat pain, dental pain, hearing loss, congestion Cardiovascular: Denies: chest pain, palpitations, dyspnea on exertion Respiratory: Denies: cough, dyspnea, wheezes Gastrointestinal: Denies: abdominal pain, nausea, vomiting, diarrhea, constipation Musculoskeletal: Denies: joint swelling, joint pain Neurological: Denies: headache, weakness, numbness, memory loss Psychiatric: Reports: anxiety, auditory hallucinations, difficulty concentrating Objective: Exam Patient orientation: Yes Person, Yes Time, Yes Place Level of alertness: Alert Patient appearance: Appropriate, Well Groomed Behavior: calm, guarded Psychomotor activity: Slowed Eye contact: Minimal Contact Mood description: Euthymic/stable Affect description: blunted Speech pattern: Slowed Speech volume: Soft/Quiet Thought process: Goal Oriented, [place] Thought content: No Suicidal ideation, No Homicidal ideation Perceptual disturbances: No Reacting to internal stimuli, Yes Auditory hallucinations, No Visual hallucinations Judgment: Limited Insight: Partial Results - Vital Signs Vital Signs: Temp Pulse Resp BP 97.6 F 76 14 129/75 02/07/17 09:00 02/07/17 09:00 02/07/17 09:00 02/07/17 09:00 Assessment and Plan (1) Schizophrenia, paranoid type Current visit: No Status: Acute Plan: Continue hospitalization, Close observation, Suicide Precautions per unit protocol, Encourage participation in unit milieu, Group Therapy, Monitor sleep, Monitor appetite Additional Plan: Continue current medications. Valproate level drawn yesterday was appropriate. The patient remains stable we will plan to discharge tomorrow with appropriate supports in place so that patient takes medication and goes to treatment. Continue to monitor. Risks, benefits, side effects, alternatives discussed w/pt: Yes Patient agreeable to treatment: Yes Consult Discharge Plan - Plan Referrals: [facility] [Outside] - 02/11/17 11:00 am (The above appointment is with Susan Daily, for outpatient psychiatric assessment and medication management services. Please arrive 30 minutes early to complete paperwork. Please bring your photo ID and medication list. This is the first available appointment. You may contact the office regularly to check for cancellations that may allow you to be seen sooner. ) [facility] [Outside] (You are going into mental health respite at [facility] on discharge from the hospital. While there, clinic staff will open a case for you to become a client, and you will be seen daily by the clinic counselors and case supervisor, both individually and in group.)
[2017-02-07] MEDS: Acetaminophen 325 MG TABLET PO PRN (19:17)
[2017-02-07] MEDS: OLANZapine 10 MG TAB.RAPDIS PO SCH (20:56)
[2017-02-07] MEDS: Ibuprofen 400 MG TABLET PO PRN (20:56)
[2017-02-07] MEDS: traZODone 50 MG TABLET PO PRN (20:57)
[2017-02-08] MEDS: hydrOXYzine pamoate 25 MG CAPSULE PO SCH (09:17)
[2017-02-08] MEDS: Divalproex (12 HR) 500 MG TABLET PO SCH (09:18)
--- NOTE | 2017-02-08 09:21 | Discharge Summary ---
Date of Encounter: 02/08/17 Time of Encounter: 08:30 Diagnosis - Discharge Diagnosis (1) Schizophrenia, paranoid type Priority: Primary Status: Acute Medications - Discharge Medications Prescriptions: Benztropine [Cogentin] 1 mg PO BID #30 tablet Benztropine [Cogentin] 1 mg PO BID #60 tab Divalproex (12 HR) [Depakote (12 HR)] 500 mg PO TID #90 OLANZapine [Zyprexa Zydis] 20 mg PO HS #30 traZODone [TraZODone] 50 mg PO HS PRN #30 tab PRN Reason: Insomnia Benztropine [Cogentin] 1 mg PO BID #30 tablet 02/08/17 [Rx] Benztropine [Cogentin] 1 mg PO BID #60 tab 02/08/17 [Rx] Divalproex (12 HR) [Depakote (12 HR)] 500 mg PO TID #90 02/08/17 [Rx] OLANZapine [Zyprexa Zydis] 20 mg PO HS #30 02/08/17 [Rx] traZODone [TraZODone] 50 mg PO HS PRN #30 tab 02/08/17 [Rx] Allergies Amoxicillin Allergy (Verified 01/16/17 12:02) Hives Results Procedures and tests throughout hospitalization: Completed Lab Orders Category Date Time Status Troponin I Q6H Lab 02/05/17 07:57 Completed Troponin I Q6H Lab 02/05/17 13:15 Completed Troponin I Q6H Lab 02/05/17 19:34 Completed Valproate Routine Lab 02/04/17 07:44 Completed Valproate Routine Lab 02/06/17 07:36 Completed Provider Date of admission: 01/17/17 17:53 Primary care physician: PCP NONE Discharging clinician: Tara Mckay Assessment and Plan - Patient/Caregiver Discharge Instructions Activity: resume usual activities as tolerated Diet: regular diet - Follow up Plan Follow up with: Amalia Chau [Outside] - 02/11/17 11:00 am (The above appointment is with Susan Daily, for outpatient psychiatric assessment and medication management services. Please arrive 30 minutes early to complete paperwork. Please bring your photo ID and medication list. This is the first available appointment. You may contact the office regularly to check for cancellations that may allow you to be seen sooner. ) [facility] [Outside] (You are going into mental health respite at [facility] on discharge from the hospital. While there, clinic staff will open a case for you to become a client, and you will be seen daily by the clinic counselors and case coordinator, both individually and in group.) Functional capacity at discharge: independent ambulation Overall status at discharge: Stable Disposition: Home, Self-Care Hospital Course Hospital course: Mr. Aguila is a 21 year old male with a history of schizophrenia who presented to the hospital with psychosis and depression. He was admitted to [facility] for psychiatric stabilization. He was incorporated into the therapeutic milieu and offered an individual as well as recreational therapy. He was also offered psychoeducational materials and supportive therapy. He was placed on suicide precautions and close observation per unit protocol. Patient was started on Depakote for mood stabilization. He was also started on Zyprexa for psychosis. Patient tolerated medications well and slowly began to have some improvement in thought process. He did initially continued to report auditory hallucinations that lessened over time. Patient has a past history of noncompliance and staff spent time educating outpatient treatment as well as family on the importance of continued medications. Patient started becoming slightly more interactive over the course of the hospital stay. At the time of discharge he denied suicidal or homicidal ideation, intent, or plan. Valproate level was drawn prior to discharge and found to be within normal limits. Patient did not appear to be responding to internal stimuli. He denied auditory or visual hallucinations. He is willing to return home and continue meds as prescribed and continue outpatient treatment. He is discharged in stable condition. - Time Spent with Patient Total time spent providing and/or coordinating discharge services: Greater than 30 minutes Quality - Multiple Antipsychotics Patient discharged on 2 or more antipsychotic medications: No Procedures - Procedures Procedures: Medication Management, Crisis Stabilization, Supportive Therapy, Group Therapy, Psychoeducational Therapy Mental Status Exam - Mental Status Exam Level of alertness: Alert Patient appearance: Appropriate, Well Groomed Behavior: calm, cooperative Psychomotor activity: Normal Eye contact: Minimal Contact Mood description: Euthymic/stable Affect description: constricted Speech pattern: Normal rate, Normal rhythm, Normal tone Speech Volume: Normal Thought process: Intact, Logical, Goal Oriented Thought Content: No Suicidal ideation, No Homicidal ideation, No Overt delusions Perceptual Disturbances: No Auditory hallucinations, No Visual hallucinations Judgment: Limited Insight: Partial
[2017-02-08 09:52] VITALS: BP 107/69
== END 2017-02-08 10:47 | disposition home or self-care (01) | DRG 750 ==
LOC: 1ANU 17:53 → SUATTDRO 17:53 → 1ANU 01-24 18:59
PROVIDERS: ADMIT Psychiatry & Neurology Psychiatry; ATTEND Psychiatry & Neurology Psychiatry

== ENCOUNTER 2021-08-12 15:12 | Inpatient (IN) ==
[2021-08-12 17:03] LABS: Bilirubin,Urine Negative (Negative); Blood,Urine Negative (Negative); Clarity,Urine Clear (Clear); Color,Urine Colorless (Yellow); Glucose,Urine (UA) Normal (Normal); Ketones,Urine Negative (Negative); Leukocyte Esterase,Urine Negative (Negative); Nitrite,Urine Negative (Negative); PH,Urine 6.5 pH Units (5.0-8.0); Protein,Urine Negative (Neg-Trace); Specific Gravity,Urine 1.007 (1.010-1.025); Urobilinogen,Urine Normal (Normal)
[2021-08-12 17:23] LABS: Amphetamine Screen,Urine Negative ng/mL (Cutoff=1000); Barbiturate Screen,Urine Negative ng/mL (Cutoff=200); Benzodiazepines Screen,Urine Negative ng/mL (Cutoff=200); Cannabinoid Screen,Urine Negative ng/mL (Cutoff = 50); Cocaine Screen,Urine Negative ng/mL (Cutoff= 300); Opiate Screen,Urine Negative ng/mL (Cutoff=300); Phencyclidine Screen,Urine Negative ng/mL (Cutoff=25)
[2021-08-12] MEDS ORDERED: haloperidoL 5 MG TABLET PO PRN (19:24)
[2021-08-12] MEDS ORDERED: *HR* LORazepam 1 MG TABLET PO PRN (19:24)
[2021-08-12] MEDS ORDERED: *HR* LORazepam 2 MG/ML VIAL IM PRN (19:24)
[2021-08-12] MEDS ORDERED: Haloperidol Lactate 5 MG/ML VIAL IM PRN (19:24)
[2021-08-12] MEDS: OLANZapine 10 MG TAB.RAPDIS PO SCH (21:22)
[2021-08-12] MEDS: traZODone 50 MG TABLET PO PRN (21:22)
[2021-08-12] MEDS: hydrOXYzine pamoate 25 MG CAPSULE PO PRN (21:22)
[2021-08-13] MEDS ORDERED: Mag Hydrox/Al Hydrox/Simeth 30 ML UDC PO PRN (07:47)
[2021-08-13] MEDS ORDERED: MOM Conc 10 ML UD.LIQ PO PRN (07:47)
[2021-08-13] MEDS: OLANZapine 10 MG TAB.RAPDIS PO SCH ×2 (09:03→20:46)
[2021-08-13] MEDS: hydrOXYzine pamoate 25 MG CAPSULE PO PRN (20:46)
[2021-08-13] MEDS: traZODone 50 MG TABLET PO PRN (20:47)
[2021-08-13] MEDS: Nicotine 2 MG GUM BC PRN (20:50)
[2021-08-14] MEDS: OLANZapine 10 MG TAB.RAPDIS PO SCH ×2 (09:00→20:24)
[2021-08-14] MEDS: Nicotine 2 MG GUM BC PRN ×2 (09:01→20:25)
[2021-08-14] MEDS: Acetaminophen 325 MG TABLET PO PRN (20:24)
[2021-08-14] MEDS: hydrOXYzine pamoate 25 MG CAPSULE PO PRN (20:24)
[2021-08-14] MEDS: traZODone 50 MG TABLET PO PRN (20:25)
[2021-08-15] MEDS: OLANZapine 10 MG TAB.RAPDIS PO SCH ×2 (09:44→20:26)
[2021-08-15] MEDS: Nicotine 2 MG GUM BC PRN ×2 (09:56→17:06)
[2021-08-15] MEDS: Acetaminophen 325 MG TABLET PO PRN (20:25)
[2021-08-15] MEDS: traZODone 50 MG TABLET PO PRN (20:26)
[2021-08-15] MEDS: hydrOXYzine pamoate 25 MG CAPSULE PO PRN (20:26)
[2021-08-16] MEDS: OLANZapine 10 MG TAB.RAPDIS PO SCH ×2 (08:57→20:27)
[2021-08-16] MEDS: Nicotine 2 MG GUM BC PRN ×3 (09:12→20:27)
[2021-08-16] MEDS: Acetaminophen 325 MG TABLET PO PRN (20:27)
[2021-08-17] MEDS: OLANZapine 10 MG TAB.RAPDIS PO SCH (08:32)
[2021-08-17 08:49] VITALS: BP 149/90; PULSE 103; TEMP 98.8; O2SAT 95
[2021-08-17] MEDS: Nicotine 2 MG GUM BC PRN ×2 (09:07→13:59)
== END 2021-08-17 16:15 | disposition home or self-care (01) | DRG 750 ==
LOC: EMEROOARM 15:12 → 1ANU 19:41
PROVIDERS: ADMIT Psychiatry & Neurology Psychiatry; ATTEND Psychiatry & Neurology Psychiatry